=== PATIENT | male | born 1975 | race Caucasian/White ===

== ENCOUNTER 2025-05-14 13:32 | Emergency (ER) | payer SELFPAY ==
[2025-05-14 13:33] VITALS: BP 170/90; PULSE 87; RESP 18; TEMP 36.6; O2SAT 95; BMI 45.1
--- NOTE | 2025-05-14 14:12 | EDS_ITS ---
HPI History of Present Illness Chief Complaint: Complaint Informant: patient Narrative Narrative: Correct presents with urine retention. Last urination midnight yesterday 14 hours ago. He was out, no alcohol involvement. He urinated at midnight. Since then has not urinated. He states that issues a week ago that was self-limiting states had large urination afterwards with no issues since then. 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 Denies nausea or vomiting. Currently on Augmentin for a dental infection. No dysuria. Prior similar symptoms: Yes PFSH PFSH Home Medications ?Medication ?Instructions ?Recorded ?Last Taken ?Type amoxicillin 875 mg-potassium 1 tab PO BID 10 days #20 tabs 05/07/25 05/14/25 Rx clavulanate 125 mg tablet cefdinir 300 mg capsule 300 mg PO Q12H #14 caps 04/25 12/18 Unknown Rx tamsulosin 0.4 mg capsule (Flomax) 0.4 mg PO DAILY #30 caps 05/14/25 Unknown Rx Allergy/AdvReac Type Severity Reaction Status Date / Time No Known Allergies Allergy Verified 05/14/25 20:57 Social History Smoking Status: Unknown if ever smoked ROS ROS ED Constitutional Constitutional ED: Denies chills, fever(s) or sweats ENT ENT ED: Denies sore throat Cardiovascular Cardiovascular: Denies chest pain, leg edema, palpitations or racing heartbeat Respiratory/Chest Respiratory/Chest: Denies cough, dyspnea or dyspnea on exertion Gastrointestinal Gastrointestinal: Denies abdominal pain, diarrhea, nausea or vomiting Genitourinary Genitourinary ED: Reports other Details: Unable to pee ; Denies dysuria, hematuria or urinary frequency Musculoskeletal Musculoskeletal: Denies back pain, extremity pain or neck pain Integumentary Denies rash or wounds Neurologic Neurologic: Denies headache(s), paresthesias or weakness EXAM Physical Exam Const Vital Signs: 05/14/25 13:33 05/14/25 14:33 05/14/25 16:00 Temperature 97.9 F 98.7 F Temperature Source Oral Oral Pulse Rate 87 82 80 Respiratory Rate 18 16 16 Blood Pressure 170/90 H 135/60 H 125/56 H Blood Pressure Mean 116 85 79 Pulse Ox 95 95 98 Oxygen Delivery Method Room Air Room Air Room Air 05/14/25 16:08 Temperature 98.1 F Temperature Source Pulse Rate 78 Respiratory Rate 16 Blood Pressure 125/56 H Blood Pressure Mean 79 Pulse Ox 100 Oxygen Delivery Method Positive well nourished and well developed Constitutional Narrative: This uncomfortable, sweaty, nontoxic General Appearance ED: well developed HEENT Reports moist mucous membranes normocephalic and atraumatic Eyes General Eye ED: Yes normal appearance of both eyes Neck full ROM Chest Wall Chest: Negative for tenderness Resp normal respiratory effort and normal air movement Effort and Inspection: symmetric chest movement; Negative for respiratory distress Cardio regular rate, regular rhythm and no murmurs Peripheral Pulses: pulses 2+ throughout GI normal to inspection, nondistended, normoactive bowel sounds GI Narrative: Reducible umbilical hernia. Tenderness suprapubic, unable to fully evaluate distention due to body habitus. Palpation: Negative for guarding or rebound tenderness present Extremity normal to inspection General Extremety ED: Negative for edema or tenderness General Extremity: Negative for edema Neuro oriented x3 and no sensory deficits noted Sensorium / Orientation: awake and alert Skin no rashes or lesions noted and no wounds MDM MDM MDM Narrative Medical decision making narrative: Interventions / MDM: Differential diagnosis: Urine retention, UTI Diagnosis considered but do not suspect: N/A My EKG interpretation: N/A Imaging independently reviewed and interpreted by myself: N/A External documents reviewed: N/A Test considered but not ordered:N/A ED course: Patient sweating during my exam reducible umbilical hernia bladder ultrasound was 672. Gaming cath ordered, basic labs and urine ordered. Will reevaluate. 1540: There is difficulty placing Gaming catheter by nursing. States with attempts he had increasing urine output at least 100 cc in addition. There was preparations for smaller coud? however on my reevaluation clinically felt better. I placed a bedside ultrasound and measured the volume 200 cc of urine in his bladder. He did not want a Gaming catheter if he does not want to. At this time less than 400 cc. Urine resulted no 25 leukocytes with 5-10 WBCs. Urine culture sent. Started on cefdinir and Flomax. Will plan for urology follow-up. With return precautions. Awaiting BMP results at this time. BMP returned normal. Prescriptions for antibiotics and Flomax. Urology follow- up. All questions were answered. Patient Re-evaluation: stable Disposition discussed with patient/family/significant other: Case discussed with consulting clinician: N/A This note was generated with Smart Plate dictation software. It may contain incorrect words, spelling, and punctuation that were not noted in checking the note before signing. Lab Data Attestation: I reviewed the patient's lab results. Labs: Laboratory Results - last 24 hr 05/14/25 05/14/25 14:40 15:15 WBC 11.8 H RBC 5.17 Hgb 14.9 Hct 43.5 MCV 84.1 MCH 28.8 MCHC 34.3 RDW Std Deviation 41.2 RDW Coeff of Oskar 13.4 Plt Count 313 MPV 11.3 Immature Gran % (Auto) 0.700 Neut % (Auto) 70.0 Lymph % (Auto) 21.8 [place] % (Auto) 6.6 Eos % (Auto) 0.6 Baso % (Auto) 0.3 Absolute Neuts (auto) 8.3 H Absolute Lymphs (auto) 2.57 Nucleated RBC % 0 Sodium 140 Potassium 4.1 Chloride 106 Carbon Dioxide 21.7 Anion Gap 13 BUN 20 H Creatinine 1.00 Estim Creat Clear Calc 133.72 Est GFR (MDRD) Non-Af 92 BUN/Creatinine Ratio 19.8 Glucose 104 H Calcium 9.3 Urine Color Yellow Urine Clarity Clear Urine pH 6.0 Ur Specific [place] 1.020 Urine Protein 30 H Urine Glucose (UA) Normal Urine Ketones Negative Urine Occult Blood 25 H Urine Nitrite Negative Urine Bilirubin Negative Urine Urobilinogen Normal Ur Leukocyte Esterase 25 H Urine RBC 0-5 SEEN Urine WBC 5-10 SEEN Ur Squamous Epith Cells 0-5 SEEN Urine Bacteria 0 SEEN Urine Mucus 0 SEEN Discharge Plan Triage Chief Complaint: Complaint ED Provider: Boaz Huang Dx/Rx/DC Orders Clinical Impression: Acute retention of urine, Acute UTI Instructions: Urinary Tract Infections in Men, ED Urinary Retention, Male Prescriptions: New cefdinir 300 mg capsule 300 mg PO Q12H Qty: 14 0RF tamsulosin [Flomax] 0.4 mg capsule 0.4 mg PO DAILY Qty: 30 0RF No Action amoxicillin-pot clavulanate 875-125 mg tablet 1 tab PO BID 10 Days Qty: 20 0RF Primary Care Provider: Care Physician,No Primary Referrals: Ramo Girard MD [Med Staff - Active Staff] - 1-2 Weeks NOT,DEFINED [Non-Staff] - Activity Restrictions/Additional Instructions: Urine retention that improved in the ED after attempted Gaming catheter. Urine with signs of infection culture pending labs are normal. Take and finish antibiotic as prescribed. Take Flomax daily. Follow-up with urology. Print Language: Georgian Disposition Disposition: Home, Self Care Discharge Date/Time: 05/14/25 16:10
--- OUTSIDE RECORDS SUMMARY | 2025-05-14 14:19 | XMS RPT_ITS | CCD ---
Author Organization [facility] Care Team Providers Care Admissions Clerk Name Role Phone Unavailable Primary Care Provider UnavailCecile De Primary Care Provider DENISE TORRES Referring Unavailable DENISE TORRES Attending Unavailable DENISE TORRES Admitting Unavailable CECILE HOPKINS Primary Care Unavailable Sandeep EDITOR PUBLICATIONS-PIGMENT MAKING SUPERVISORCecile Primary Care Provider Sean Jiang Attending Unavailable SOL BROWN Admitting Unavailable SOL BROWN Consulting Unavailable SOL BROWN Attending Unavailable NONE, NONE Primary Care Unavailable EISENINDIAN, SOL Consulting Unavailable Craft [phone], [phone] Les R. Consu lting Unavailable CRAFT DO, LES R Consulting Unavailable NONE, NONE Consulting Unavailable NONE, NONE Consulting Unavailable CARSON DO, DR HARDIN Admitting Unavaila ble CARSON DO, DR HARDIN Consulting Unavaila ble CARSON DO, DR HARDIN Attending Unavaila ble NONE, NONE Primary Care Unavailable CARSON DO, DR HARDIN Consulting Unavaila ble NONE, NONE Consulting Unavailable NONE, NONE Consulting Unavailable Ortiz Velasquez Attending Provider [phone] Albert Hamilton Attending Provider [phone] Ortiz Velasquez Attending Unavailable Ortiz Velasquez Attending Unavailable Albert Rodarte Attending Unavailable Medications Current Medications Medication Drug Class(es) Dates Sig (Normalized) Sig (Original) amoxicillin 875 mg / clavulanate 125 mg oral tablet (2 sources) Penicillin-class Antibacterial Start: 05-07-2025 Amoxicillin-Pot Clavulanate 875-125 mg tablet Active 1 {tbl} PO TWICE A DAY 20 10 May 07, 2025 12:00am May 16, 2025 12:00am Start: 01-21-2025 End: 01-31-2025 Amoxicillin-Pot Clavulanate 875-125 mg tablet Discontinued 1 {tbl} PO Q12H 20 January 21, 2025 1:00am January 30, 2025 1:00am January 31, 2025 12:12am hydroCHLOROthiazide 50 mg / triamterene 75 mg oral tablet (3 sources) Potassium-sparing Diuretic, Thiazide Diuretic Start: 09-15-2020 End: 04-10-2021 take 0.5 tablet by mouth once daily triamterene-hydrochlorothiazide 75-50 MG tablet Indications: Essential hypertension Take 0.5 tablets by mouth daily. 15 tablet 3 09/15/2020 Active Completed/Discontinued Medications Medication Drug Class(es) Dates Sig (Normalized) Sig (Original) ibuprofen 800 mg oral tablet (3 sources) Nonsteroidal Anti-inflammatory Drug Start: 08-27-2020 End: 04-10-2021 take 1 tablet by mouth every six hours as needed ibuprofen 800 MG tablet Take 1 tablet by mouth every 6 hours as needed for Moderate Pain. 40 tablet 0 08/27/2020 04/10/2021 Discontinued losartan potassium 50 mg oral tablet (1 source) Angiotensin 2 Receptor Triston Start: 12-07-2020 End: 04-10-2021 take 1 tablet by mouth once daily losartan 50 MG tablet Indications: Essential hypertension Take 1 tablet by mouth daily. 30 tablet 3 12/07/2020 04/10/2021 Discontinued Problems Active Problems Problem Classification Problem Date Documented Date Episodic/Chronic Disorders of teeth and jaw (2 sources) Infection of tooth; Translations: [Periapical abscess without sinus] 01-21-2025 Episodic Essential hypertension (4 sources) Essential hypertension; Translations: [Essential (primary) hypertension] Onset: 09-15-2020 09-15-2020 Chronic Immunizations and screening for infectious disease (3 sources) Contact with and (suspected) exposure to infections with a predominantly sexual mode of transmission; Translations: [CONTCT W EXPOS INFECT SEXUAL TRNSMS] Onset: 06-07-2023 Episodic Osteoarthritis (1 source) Unilateral primary osteoarthritis, left knee; Translations: [UNI PRIM OSTEOARTHRITIS LT KNEE] Onset: 08-05-2023 Chronic Other non-traumatic joint disorders (2 sources) Pain in left knee; Translations: [PAIN IN LEFT KNEE] Onset: 08-01-2023 Episodic Other nutritional; endocrine; and metabolic disorders (3 sources) Morbid obesity; Translations: [Morbid (severe) obesity due to excess calories] Onset: 09-15-2020 09-15-2020 Chronic Other screening for suspected conditions (not mental disorders or infectious disease) (2 sources) Patient encounter status; Translations: [Encounter for screening for malignant neoplasm of prostate] Onset: 09-15-2020 Episodic Sprains and strains (1 source) Sprain of ankle; Translations: [Sprain of anterior talofibular ligament of right ankle, initial encounter] Episodic Unclassified (1 source) Sprain of right ankle; Translations: [Sprain of right ankle, unspecified ligament, initial encounter] Unclassified (2 sources) Patient encounter status; Translations: [Screening for thyroid disorder] Onset: 09-15-2020 09-15-2020 Past or Other Problems Problem Classification Problem Date Documented Date Episodic/Chronic Administrative/social admission (2 sources) Administrative reason for encounter; Translations: [Encounter for other administrative examinations] Onset: 09-03-2024 09-03-2024 Episodic Results Test Name Value Interpretation Reference Range Facil ity Urgent Care Visit Reporton 0 05-07-2025 Urgent Care Visit Report [facility] [address], [address] [place] [id number] OFFICE VISIT Date of Service: 05/07/25 MR#: [id number] Acct: [id number] Name: rios delatorre Rep #: [id number] : 1975 Provider: KATERINA Velez Age/Sex: 49/M Location: [facility] Status: Signed Intake Vital Signs 05/07/25 08:26 BP 162/92 H Blood Pressure Location Lt brachial Position Sitting Respiration 18 Pulse 74 Pulse Source NIBP Temp 98.4 F Temp Source Oral Pulse Oximetry (%) 98 Oxygen Delivery Method room air Intake Visit Reasons: CONCERN FOR TOOTH INFECTION Chief Complaint: left lower tooth Stiff Neck Loader Required: No Is patient in pain?: Yes Allergies No Known Allergies Allergy (Verified 05/07/25 08:27) Have you fallen in the past year?: No Nurse's Note: left lower tooth infection. c/o pain, drainage, swelling into left neck, intermittent fever x 2 weeks. hx of same and given ATB x3 occasions. discussed dental appt with pt HPI HPI Chief Complaint: left lower tooth Details: rios delatorre, is a 49 M who presents to the office today for evaluation of dental pain. Patient states he has been experiencing recurrent dental infections over the past several months requiring multiple rounds of antibiotics for management. Patient states that he is not established with a dentist but does have poor tooth quality from tobacco use. He states that he noticed pain in the left lower jaw with swelling, fever, and purulent discharge. He states that the pain was relieved by Aleve but the swelling persists. ROS Const Constitutional: No chills, fatigue, fever(s) or headache(s) ENT ENT: Positive for dental pain, bad breath and mouth pain; No headache(s) Neuro Neurology: No headache(s) Endo Endocrine: No fatigue Exam Const General: cooperative, healthy appearing and no acute distress HENMT Teeth and gingiva: abnormal tooth or associated gingiva lower left with associated gingival edema, dentin fractured and pulp exposed; without associated gingival fluctuance, gingiva abnormal with purulent discharge and diffusely erythematous and poor dentition Neck Lymphatic: lymphedema (left anterior neck) Coding Level of Care Code Established Pt Off vis,new,level 3 Patient Type Established History Expanded Problem Focused Exam Expanded Problem Focused Medical Decision Making Low Complexity Diagnoses Dental infection K04.7 Elevated BP without diagnosis of hypertension R03.0 Assessment and Plan Assessment and Plan (1) Dental infection: Status: Acute Plan: Significant edema of the left lower jaw with localized edema of the neck suggestive of deep neck infection vs dental abscess. Initiate management with Augmentin at this time, patient strongly e ncouraged to establish with a dentist for management. Continue PRN OTC analgesia for pain control. Patient voiced understanding and agreement with plan. (2) Elevated BP without diagnosis of hypertension: Status: Acute Plan: Discussed BP elevation and risk for cardiovascular disease. Strongly encouraged patient to f/u with PCP for management. Patient voiced understanding and agreement with plan. Medications: New amoxicillin-pot clavulanate 875-125 mg 1 TAB PO BID 10 days 20 tabs 0RF Clinical Quality Measures Falls Risk Screening/Assistive Devices Have you fallen in the past year?: No 05/07/25 0851 Date Albert Franzigner Signature: Date (if applicable) CC: Normal [facility] Urgent Care Visit Reporton 0 01-21-2025 Urgent Care Visit Report [facility] [address], [address] [place] [address] OFFICE VISIT Date of Service: 01/21/25 MR#: [id number] Acct: [id number] Name: rios delatorre Rep #: [id number] : 1975 Provider: KATERINA Howell Age/Sex: 49/M Location: [facility] Status: Signed Intake Vital Signs 01/21/25 12:04 BP 148/82 H Blood Pressure Location Rt brachial Position Sitting Respiration 16 Pulse 67 Pulse Source NIBP Temp 98.2 F Temp Source Oral Pulse Oximetry (%) 97 Oxygen Delivery Method room air Intake Visit Reasons: ear pain Chief Complaint: left ear pain, plugged, swelling Stiff Neck Loader Required: No Is patient in pain?: Yes Allergies No Known Allergies Allergy (Verified 01/21/25 12:04) Medications ???Medication ???Instructions ???Recorded ???Confirmed ???Type amoxicillin 875 mg-potassium 1 tab PO Q12H 10 days #20 tabs 01/21/25 Rx clavulanate 125 mg tablet Have you fallen in the past year?: No Nurse's Note: left ear pain, plugged, swelling x 1 week HPI HPI Chief Complaint: left ear pain, plugged, swelling Details: rios delatorre, is a 49 M who presents to the office today for complaint of swelling and pain to the left jaw into the ear area. Patient states after having an ear infection or tooth issue. He denies fever, chills, sweats. No nausea, vomiting or diarrhea. No otorrhea or hearing change/loss. No other associated symptoms or alleviating/aggravat ing factors. ROS Const Constitutional: No other (6 system ROS completed with pertinent findings in the HPI otherwise normal.) Exam Const General: cooperative and well developed HENMT Head: normal to inspection and atraumatic Ears: hearing grossly normal bilaterally, TM's normal bilaterally and EAC's normal Nose: nasal discharge clear Face and sinus: normal facial exam Mouth: oral mucosae normal Teeth and gingiva: multiple restorations, poor dentition and other (Small amount of gingival erythema to left lower jaw without abscess) Resp Effort Inspection: normal respiratory effort and no audible wheezes Auscultation: Bilateral: Clear to Auscultation Cardio Rate: regular rate Rhythm: regular rhythm Neuro General: patient alert Psych Appearance: grossly normal Mental Status: mental status grossly normal Coding Level of Care Code Off vis,est,level 3 Diagnoses Dental infection K04.7 Assessment and Plan Assessment and Plan (1) Dental infection: Status: Acute Medications: New amoxicillin-pot clavulanate 875-125 mg 1 TAB PO Q12H 20 tabs 0RF 10 days J01.90 - Acute sinusitis, unspecified Plan Augmentin as prescribed today. Encouraged to get plenty of rest, drink lots of clear liquids, and use Tylenol or Ibuprofen (unless contraindicated) for fever and comfort. Patient also educated on other symptomatic management techniques. To be seen in 7-10 days if no improvement; sooner if worsening of symptoms. Patient advised of potential red flags and when appropriate to report to the ED. Patient verbalized understanding and agreement with all the above. Clinical Quality Measures Falls Risk Screening/Assistive Devices Have you fallen in the past year?: No 01/21/25 1209 Date Ortiz Olivares Signature: Date (if applicable) CC: Normal [facility] Urgent Care Visit Reporton 1 Urgent Care Visit Report [facility] [address] [place] [address] OFFICE VISIT Date of Service: 09/03/24 MR#: [id number] Acct: [id number] Name: rios delatorre Rep #: [id number] : 1975 Provider: KATERINA Howell Age/Sex: 48/M Location: 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 Please see corresponding scanned documents with today's date. Office Procedures Physical Exam Coding PE Coding DOT PE: Yes Coding Level of Care Code No Charge Diagnoses Encounter for examination required by Department of Transportation (DOT) Z02.89 Assessment and Plan Assessment and Plan (1) Encounter for examination required by Department of Transportation (DOT): Status: Acute 09/03/24 1405 Date Ortiz BORGES Cosigner Signature: Date (if applicable) CC: Normal [facility] PATELLA LEFTon 08-01-2023 PATELLA LEFT EXAM: PATELLA LEFT HISTORY: Pain of left knee joint COMPARISON: None. TECHNIQUE: AP, lateral, and patellar projections. FINDINGS: The alignment is normal. I do not see any evidence of fracture. Patient has significant advanced osteoarthritic degenerative joint disease. There is major narrowing of the medial joint space. Mild narrowing of the lateral joint space is seen. Patellofemoral narrowing is seen. There is large broad-based spur and osteophyte changes off the femoral condyles and along the undersurface of the patella. Spurring is seen off the tibial plateaus. I do not see periarticular calcifications or major joint effusion. IMPRESSION: For the age group patient has moderately severe osteoarthritic degenerative joint disease. This is most pronounced in the medial and patellofemoral joints. I do not see any acute traumatic finding. Normal [facility] CHLAM GONORRHEA and TRICH NA Aon 06-10-2023 [id number] Negative Normal Negative [facility] Comment on above: Performed By: #### G CCHTR #### Performed for [facility] [address] [place], [place] [address] C. trachomatis rRNA JORGE LUIS+probe Ql (Unsp spec) Negative Normal Negative [facility] Comment on above: Performed By: #### G CCHTR #### Performed for [facility] [address] [place], [place] [address] N. gonorrhoeae rRNA JORGE LUIS+probe Ql (Unsp spec) Negative Normal Negative [facility] Comment on above: Performed By: #### G CCHTR #### Performed for [facility] [address] [place], [place] [address] CT Ankle Right Without Contr eduardo 09-24-[address] evidence of acute osseous abnormality. 2. Ligamentous structures and tendons would be better evaluated with MRI. 3. Moderate soft tissue swelling in the lateral ankle. 4. Mild degenerative change of the tibiotalar joint with small subchondral cystic change in the lateral talar dome which may suggest focal overlying chondrosis, however no significant osteochondral lesion in the talar dome. Workstation ID: [id number] [facility] EXAMINATION: CT ANKLE RIGHT WITHOUT CONTRAST HISTORY: ORDERING SYSTEM PROVIDED HISTORY: Sprain of anterior talofibular ligament of right ankle, initial encounter, TECHNOLOGIST PROVIDED HISTORY: Injury/Trauma Reason for exam: stepped in hole, swelling pain medial and lateral Encounter Type: Initial Mechanism of injury: stepped in hole ORDERING SYSTEM PROVIDED DIAGNOSIS CODES: S93.491A Sprain of anterior talofibular ligament of right ankle, initial encounter COMPARISON: None TECHNIQUE: Dose reduction techniques were achieved by using automated exposure control and/or adjustment of mA and/or kV according to patient size and/or use of iterative reconstruction technique. Multiplanar CT images of the right ankle without contrast CONTRAST: None FINDINGS: No CT evidence of acute fracture. No dislocation. Scattered probable benign bone islands. No suspicious osseous lesions. Enthesopathic change at the distal Achilles tendon insertion. Mild degenerative change of the ankle. There is small subchondral cystic change in the lateral talar dome which may suggest focal overlying chondrosis, however no significant osteochondral lesion in the talar dome. Nonspecific subcortical cystic change in the lateral malleolus. Ligamentous structures and tendons would be better evaluated with MRI. Moderate soft tissue swelling in the lateral ankle. There appears to be ganglion cyst formation in the posterior ankle. [facility] Interface, Rad In Zachary Suazoq - 09/24/2020 6:42 PM EST EXAMINATION: CT ANKLE RIGHT WITHOUT CONTRAST HISTORY: ORDERING SYSTEM PROVIDED HISTORY: Sprain of anterior talofibular ligament of right ankle, initial encounter, TECHNOLOGIST PROVIDED HISTORY: Injury/Trauma Reason for exam: stepped in hole, swelling pain medial and lateral Encounter Type: Initial Mechanism of injury: stepped in hole ORDERING SYSTEM PROVIDED DIAGNOSIS CODES: S93.491A Sprain of anterior talofibular ligament of right ankle, initial encounter COMPARISON: None TECHNIQUE: Dose reduction techniques were achieved by using automated exposure control and/or adjustment of mA and/or kV according to patient size and/or use of iterative reconstruction technique. Multiplanar CT images of the right ankle without contrast CONTRAST: None FINDINGS: No CT evidence of acute fracture. No dislocation. Scattered probable benign bone islands. No suspicious osseous lesions. Enthesopathic change at the distal Achilles tendon insertion. Mild degenerative change of the ankle. There is small subchondral cystic change in the lateral talar dome which may suggest focal overlying chondrosis, however no significant osteochondral lesion in the talar dome. Nonspecific subcortical cystic change in the lateral malleolus. Ligamentous structures and tendons would be better evaluated with MRI. Moderate soft tissue swelling in the lateral ankle. There appears to be ganglion cyst formation in the posterior ankle. IMPRESSION: 1. No CT evidence of acute osseous abnormality. 2. Ligamentous structures and tendons would be better evaluated with MRI. 3. Moderate soft tissue swelling in the lateral ankle. 4. Mild degenerative change of the tibiotalar joint with small subchondral cystic change in the lateral talar dome which may suggest focal overlying chondrosis, however no significant osteochondral lesion in the talar dome. Workstation ID: [id number] [facility] CT ANKLE RIGHT WITHOUT CONTR Eduardo 09-22-2020 CT ANKLE RIGHT WITHOUT CONTRAST EXAMINATION: CT ANKLE RIGHT WITHOUT CONTRAST HISTORY: ORDERING SYSTEM PROVIDED HISTORY: Sprain of anterior talofibular ligament of right ankle, initial encounter, TECHNOLOGIST PROVIDED HISTORY: Injury/Trauma Reason for exam: stepped in hole, swelling pain medial and lateral Encounter Type: Initial Mechanism of injury: stepped in hole ORDERING SYSTEM PROVIDED DIAGNOSIS CODES: S93.491A Sprain of anterior talofibular ligament of right ankle, initial encounter COMPARISON: None TECHNIQUE: Dose reduction techniques were achieved by using automated exposure control and/or adjustment of mA and/or kV according to patient size and/or use of iterative reconstruction technique. Multiplanar CT images of the right ankle without contrast CONTRAST: None FINDINGS: No CT evidence of acute fracture. No dislocation. Scattered probable benign bone islands. No suspicious osseous lesions. Enthesopathic change at the distal Achilles tendon insertion. Mild degenerative change of the ankle. There is small subchondral cystic change in the lateral talar dome which may suggest focal overlying chondrosis, however no significant osteochondral lesion in the talar dome. Nonspecific subcortical cystic change in the lateral malleolus. Ligamentous structures and tendons would be better evaluated with MRI. Moderate soft tissue swelling in the lateral ankle. There appears to be ganglion cyst formation in the posterior ankle. IMPRESSION: 1. No CT evidence of acute osseous abnormality. 2. Ligamentous structures and tendons would be better evaluated with MRI. 3. Moderate soft tissue swelling in the lateral ankle. 4. Mild degenerative change of the tibiotalar joint with small subchondral cystic change in the lateral talar dome which may suggest focal overlying chondrosis, however no significant osteochondral lesion in the talar dome. Workstation ID: [id number] Dictated by: SASHA ARRINGTON on FriSep 24, 2020 6:39:49 PM EST Transcribed by: SASHA ARRINGTON on FriSep 24, 2020 6:39:49 PM EST Finalized by: SASHA ARRINGTON on FriSep 24, 2020 6:39:49 PM EST Normal [facility] Comment on above: Order Comment: Pt/fa x Injury/Trauma or Illness?:Injury/Trauma How long have you had these symptoms (acute/chronic)?:Acute Reason for exam?:stepped in hole, swelling pain medial and lateral Type of Exam?:Initial Mechanism of injury?:stepped in hole CBCon 09-16-2020 ABSOLUTE BAS 0.1 10*3/uL Normal 0.0-0.2 [facility] ABSOLUTE EOS 0.40 10*3/uL Normal 0.0-0.7 [facility] ABSOLUTE NEUTROPHIL COUNT 5.0 10*3/uL Normal 1.4-6.5 [facility] Basophils/100 WBC (Bld) 0.5 % Normal 0.0-2.0 [facility] DTYPE AUTO DIFF Normal [facility] Eosinophils/100 WBC (Bld) 4.1 % Normal 0.0-11.0 [facility] Lymphocytes (Bld) [#/Vol] 3.70 10*3/uL High 1.2-3.4 [facility] Lymphocytes/100 WBC (Bld) 38.5 % Normal 20.0-55.0 [facility] Monocytes (Bld) [#/Vol] 0.5 10*3/uL Normal 0.0-0.7 [facility] Monocytes/100 WBC (Bld) 5.4 % Normal 0.0-10.0 [facility] Neutrophils/100 WBC (Bld) 51.5 % Normal 37.0-75.0 [facility] Erythrocyte distribution width (RBC) [Ratio] 13.8 % Normal 11.5-14.5 [facility] Hematocrit (Bld) [Volume fraction] 46.5 % Normal 42.0-52.0 [facility] Hemoglobin (Bld) [Mass/Vol] 15.9 g/dL Normal 14.0-18.0 [facility] MCH (RBC) [Entitic mass] 28.9 pg Normal 26.0-35.0 [facility] MCHC (RBC) [Mass/Vol] 34.2 g/dL Normal 27.0-37.0 [facility] MCV (RBC) [Entitic vol] 84.4 fL Normal 80.0-100.0 [facility] Platelet mean volume (Bld) [Entitic vol] 9.5 fL Normal 7.4-11.0 [facility] Platelets (Bld) [#/Vol] 247 10*3/uL Normal 130.0-400.0 [facility] RBC (Bld) [#/Vol] 5.51 10*6/uL Normal 4.0-6.1 [facility] WBC (Bld) [#/Vol] 9.7 10*3/uL Normal 3.6-11.0 [facility] CMP FASTINGon 09-16-2020 A:G RATIO 1.2 RATIO Low 1.3-2.2 [facility] Albumin [Mass/Vol] 4.4 G/dl Normal 3.5-5.0 [facility] ALP [Catalytic activity/Vol] 98 U/L Normal 38-126 [facility] ALT [Catalytic activity/Vol] 29 U/L Normal <50 [facility] AST [Catalytic activity/Vol] 25 U/L Normal 17-59 [facility] Bilirubin [Mass/Vol] 0.6 mg/dL Normal 0.2-1.3 [facility] Calcium [Mass/Vol] 9.7 mg/dL Normal 8.4-10.2 [facility] Chloride [Moles/Vol] 102 mmol/L Normal 98-107 [facility] Comment on above: Result Comment: Enma delgado note: Triglyceride levels of 600mg/dL or higher may positively bias chloride results by approximately 2.1 mmol CO2 [Moles/Vol] 30 mmol/L Normal 22-30 [facility] Creatinine [Mass/Vol] 0.86 mg/dL Normal 0.7-1.2 [facility] EST. GFR, >60 Normal [facility] EST. GFR,Non >60 Normal [facility] GFR/1.73 sq M predicted among non-blacks MDRD (S/P/Bld) [Vol rate/Area] Average GFR for 40-49 years old = 99. Normal [facility] Comment on above: Result Comment: Outbound Sales Agent annia Kidney disease, GFR = <60. Kidney failure, GFR = <15. The GFR estimate is not adjusted for extreme body surface area or acute process, nor has it been validated for women or ethnic groups other than and . Glucose [Mass/Vol] 106 mg/dL High 70-100 [facility] Comment on above: Result Comment: NORMAL <100 mg/dL PREDIABETES 101-126 mg/dL DIABETES 126 mg/dL or higher Potassium [Moles/Vol] 4.4 mmol/L Normal 3.5-5.1 [facility] Protein [Mass/Vol] 8.2 g/dL Normal 6.3-8.2 [facility] Sodium [Moles/Vol] 139 mmol/L Normal 137-145 [facility] Urea nitrogen [Mass/Vol] 13 mg/dL Normal 7-20 [facility] LIPID PROFILEon 09-16-2020 Cholesterol [Mass/Vol] 209 mg/dL High 120-200 [facility] Cholesterol in HDL [Mass/Vol] 41 mg/dL Normal 26-63 [facility] Cholesterol in LDL [Mass/Vol] 142 mg/dL Normal [facility] Cholesterol in VLDL [Mass/Vol] 26 mg/dL High 5.0-25 [facility] Cholesterol.total/C holesterol in HDL [Mass ratio] 5.10 {ratio} Normal [facility] Comment on above: Result Comment: RISK TOTAL/HDL RATIO MEN WOMEN 1/2 AVERAGE 3.43 3.27 AVERAGE 4.97 4.44 2X AVERAGE 9.55 7.05 3X AVERAGE 23.99 11.04 Triglyceride [Mass/Vol] 128 mg/dL Normal 0-150 [facility] TSHon 09-16-2020 TSH Qn 1.980 uIU/ML Normal 0.46-4.68 [facility] XR ANKLE RIGHT 3+ VIEWSon XR ANKLE RIGHT 3+ VIEWS EXAM: XR Right Ankle, 3 Views CLINICAL HISTORY: ankle pain and swelling TECHNIQUE: Frontal, lateral and oblique views of the right ankle. COMPARISON: No relevant prior studies available. FINDINGS: Limitations: None. Bones/joints: No acute fracture or osseous destruction. Normal alignment. Soft tissues: Diffuse periarticular soft tissue swelling noted with associated lateral hematoma. IMPRESSION: There is soft tissue swelling without acute bony abnormality. Electronically signed by: Marlene Santacruz MD 08/27/2020 9:11 AM CDT [facility] IMPRESSION: There is soft tissue swelling without acute bony abnormality. Electronically signed by: Marlene Santacruz MD 08/27/2020 9:11 AM CDT [facility] EXAM: XR Right Ankle, 3 Views CLINICAL HISTORY: ankle pain and swelling TECHNIQUE: Frontal, lateral and oblique views of the right ankle. COMPARISON: No relevant prior studies available. FINDINGS: Limitations: None. Bones/joints: No acute fracture or osseous destruction. Normal alignment. Soft tissues: Diffuse periarticular soft tissue swelling noted with associated lateral hematoma. [facility] User, Interfaces - 08/27/2020 10:13 AM EDT EXAM: XR Right Ankle, 3 Views CLINICAL HISTORY: ankle pain and swelling TECHNIQUE: Frontal, lateral and oblique views of the right ankle. COMPARISON: No relevant prior studies available. FINDINGS: Limitations: None. Bones/joints: No acute fracture or osseous destruction. Normal alignment. Soft tissues: Diffuse periarticular soft tissue swelling noted with associated lateral hematoma. IMPRESSION IMPRESSION: There is soft tissue swelling without acute bony abnormality. Electronically signed by: Marlene Santacruz MD 08/27/2020 9:11 AM CDT [facility] Vital Signs Date Time Vital Sign Value Performing Clinician Faci lity 05-07-2025 08:26-0400 Body temperature 98.4 [degF] Ortiz Efraín PA Work Phone: [facility] 05-07-2025 08:26-0400 Diastolic blood pressure 92 mm[Hg] Ortiz Efraín PA Work Phone: [facility] 05-07-2025 08:26-0400 Heart rate 74 /min Ortiz Efraín PA Work Phone: [facility] 05-07-2025 08:26-0400 Respiratory rate 18 /min Ortiz Efraín PA Work Phone: [facility] 05-07-2025 08:26-0400 SaO2% (BldA) [Mass fraction] 98 % Ortiz Efraín PA Work Phone: [facility] 05-07-2025 08:26-0400 Systolic blood pressure 162 mm[Hg] Ortiz Efraín PA Work Phone: [facility] 01-21-2025 12:04-0500 Body temperature 98.2 [degF] Ortiz Efraín PA Work Phone: [facility] 01-21-2025 12:04-0500 Diastolic blood pressure 82 mm[Hg] Ortiz Efraín PA Work Phone: [facility] 01-21-2025 12:04-0500 Heart rate 67 /min Ortiz Efraín PA Work Phone: [facility] 01-21-2025 12:04-0500 Respiratory rate 16 /min Ortiz Efraín PA Work Phone: [facility] 01-21-2025 12:04-0500 SaO2% (BldA) [Mass fraction] 97 % Ortizrosalino Kenny PA Work Phone: [facility] 01-21-2025 12:04-0500 Systolic blood pressure 148 mm[Hg] Ortiz Kenny PA Work Phone: [facility] 04-10-2021 08:43-0400 Body mass index (BMI) [Ratio] 48.15 kg/m2 Cecile Sandeep EDITOR PUBLICATIONS-PIGMENT MAKING SUPERVISOR Work Phone: [facility] 04-10-2021 08:43-0400 Body weight 161.03 kg Cecile Sandeep EDITOR PUBLICATIONS-PIGMENT MAKING SUPERVISOR Work Phone: [facility] 04-10-2021 08:43-0400 Diastolic blood pressure 80 mm[Hg] Cecile Sandeep EDITOR PUBLICATIONS-PIGMENT MAKING SUPERVISOR Work Phone: [facility] 04-10-2021 08:43-0400 Heart rate 80 /min Cecile Sandeep EDITOR PUBLICATIONS-PIGMENT MAKING SUPERVISOR Work Phone: [facility] 04-10-2021 08:43-0400 SaO2% (BldA) [Mass fraction] 97 % Cecile Sandeep EDITOR PUBLICATIONS-PIGMENT MAKING SUPERVISOR Work Phone: [facility] 04-10-2021 08:43-0400 Systolic blood pressure 132 mm[Hg] Cecile Sandeep EDITOR PUBLICATIONS-PIGMENT MAKING SUPERVISOR Work Phone: [facility] 09-15-2020 13:40-0400 BMI (Body Mass Index) 46.52 kg/m2 Cecile Sandeep [facility] 09-15-2020 13:40-0400 Body [facility] 09-15-2020 13:40-0400 BP Diastolic 90 mm[Hg] [facility] 09-15-2020 13:40-0400 BP Systolic 144 mm[Hg] [facility] 09-15-2020 13:40-0400 Height 182.9 cm [facility] 09-15-2020 13:40-0400 Pulse (Heart Rate) 80 /min [facility] 09-15-2020 13:40-0400 Pulse Oximetry 97 % [facility] 08-27-2020 09:51-0400 BMI (Body Mass Index) 46.79 kg/m2 [facility] 08-27-2020 09:51-0400 Body weight 156.49 kg [facility] 08-27-2020 09:51-0400 Height 182.9 cm [facility] 08-27-2020 09:50-0400 Body Temperature 98.6 [degF] [facility] 08-27-2020 09:50-0400 BP Diastolic 77 mm[Hg] [facility] 08-27-2020 09:50-0400 BP Systolic 172 mm[Hg] [facility] 08-27-2020 09:50-0400 Pulse (Heart Rate) 81 /min [facility] 08-27-2020 09:50-0400 Pulse Oximetry 96 % [facility] 08-27-2020 09:50-0400 Respiratory Rate 18 /min [facility] Encounters Encounter Date Encounter Type Care Provider Facility Start: 05-07-2025 End: 05-07-2025 Patient encounter procedure Albert Rodarte [facility] Work Phone: Start: 05-07-2025 End: 05-07-2025 ambulatory Albert Rodarte [facility] Work Phone: Start: 01-21-2025 End: 01-21-2025 Patient encounter procedure Ortiz Kenny PA [facility] Work Phone: Start: 01-21-2025 End: 01-21-2025 ambulatory Ortiz BORGES Facility:[facility] Start: 09-03-2024 End: 09-03-2024 ambulatory Ortiz BORGES Facility:[facility] Start: 08-01-2023 End: 08-02-2023 ambulatory SOL BROWN Facility:[facility] Start: 06-07-2023 End: 06-08-[address] WILFRED BYRD DO Facility:[facility] Start: 04-10-2021 End: 04-10-2021 Office outpatient visit 15 minutes Cecile Hopkins EDITOR PUBLICATIONS-PIGMENT MAKING SUPERVISOR Work Phone: [facility] Comment on above: body mass index of 4 0.0-49.9 (Primary Dx); Essential hypertension; Preventative health care; Screening for prostate cancer Start: 04-10-2021 End: 04-10-2021 Patient encounter status Cecile Hopkins EDITOR PUBLICATIONS-PIGMENT MAKING SUPERVISOR Work Phone: [facility] Start: 09-22-2020 End: 09-23-2020 Patient encounter procedure DENISE TORRES [facility] Start: 09-22-2020 End: 09-22-2020 Subsequent hospital visit by physician Denise Torres Work Phone: [facility] CT Scan Comment on above: Sprain of anterior t alofibular ligament of right ankle, initial encounter Start: 09-15-2020 End: 09-15-2020 Office outpatient new 30 minutes Cecile Hopkins Work Phone: [facility] Comment on above: Essential hypertensi on (Primary Dx); Screening for thyroid disorder Start: 08-27-2020 End: 08-27-2020 Emergency department patient visit [facility] Start: 08-27-2020 End: 08-27-2020 Emergency department patient visit [facility] Work Phone[facility] Procedures Date Procedure Procedure Detail Performing Clinician Start: 09-22-2020 Ct lower extremity w /o contrast material Denise Torres Work Phone: Start: 09-16-2020 Lipid 1996 panel - S lukas or Plasma Cecile Hopkins EDITOR PUBLICATIONS-PIGMENT MAKING SUPERVISOR Work Phone: Start: 08-27-2020 X-ray of right ankle Ba brunilda Jiang Work Phone: Plan of Treatment Date Care Activity Detail Author Start: 09-16-2025 Fasting lipid profile LIPID SCREENIN G [facility] Start: 08-08-2025 Tetanus vaccination [facility] Start: 10-12-2021 End: 10-12-2021 Patient encounter procedure 10/12/2021 Office Visit Family Medicine Cecile Hopkins, EDITOR PUBLICATIONS-PIGMENT MAKING SUPERVISOR [address] [place] [address] [facility] Start: 09-16-2021 Potassium [Moles/vol ume] in Serum or Plasma POTASSIUM [facility] Start: 08-27-2021 End: 04-10-2022 Complete blood count with white cell differential, automated CBC, EDIF, PLATELET Lab Routine Essential hypertension Expected: 08/27/2021, Expires: 04/10/2022 [facility] Comment on above: Expected: 08/27/2021 , Expires: 04/10/2022 Start: 08-27-2021 End: 04-10-2022 Comprehensive metabolic 2000 panel - Serum or Plasma COMPREHENSIVE METABOLIC PANEL Lab Routine Essential hypertension Expected: 08/27/2021, Expires: 04/10/2022 [facility] Comment on above: Expected: 08/27/2021 , Expires: 04/10/2022 Start: 08-27-2021 End: 04-10-2022 LIPID PANEL W CALCULATED LDL LIPID PANEL W CALCULATED LDL Lab Routine Essential hypertension Expected: 08/27/2021, Expires: 04/10/2022 [facility] Comment on above: Expected: 08/27/2021 , Expires: 04/10/2022 Start: 08-27-2021 End: 04-10-2022 PSA screening PSA, SCREENING Lab Routine Screening for prostate cancer Expected: 08/27/2021, Expires: 04/10/2022 [facility] Comment on above: Expected: 08/27/2021 , Expires: 04/10/2022 Start: 12-15-2020 End: 12-15-2020 Office Visit 12/15/2020 Office Visit Family Medicine Cecile Hopkins, EDITOR PUBLICATIONS-PIGMENT MAKING SUPERVISOR [address] [place] [address] [facility] Start: 09-15-2020 End: 09-15-2021 Complete blood count with white cell differential, automated CBC, EDIF, PLATELET Lab Routine Essential hypertension Expected: 09/15/2020, Expires: 09/15/2021 [facility] Comment on above: Expected: 09/15/2020 , Expires: 09/15/2021 Start: 09-15-2020 End: 09-15-2021 Comprehensive metabolic 2000 panel COMPREHENSIVE METABOLIC PANEL Lab Routine Essential hypertension Expected: 09/15/2020, Expires: 09/15/2021 [facility] Comment on above: Expected: 09/15/2020 , Expires: 09/15/2021 Start: 09-15-2020 End: 09-15-2021 LIPID PANEL W CALCULATED LDL LIPID PANEL W CALCULATED LDL Lab Routine Essential hypertension Expected: 09/15/2020, Expires: 09/15/2021 [facility] Comment on above: Expected: 09/15/2020 , Expires: 09/15/2021 Start: 09-15-2020 End: 09-15-2020 Office Visit 09/15/2020 Office Visit Family Medicine Cecile Hopkins, EDITOR PUBLICATIONS-PIGMENT MAKING SUPERVISOR [address] [place] [address] [facility] Start: 09-15-2020 End: 09-15-2021 TSH Qn TSH Lab Routine Essential hypertension Screening for thyroid disorder Expected: 09/15/2020, Expires: 09/15/2021 [facility] Comment on above: Expected: 09/15/2020 , Expires: 09/15/2021 Start: 07-25-2020 Influenza vaccination INFLUENZA VACC INE (#1) [facility] Start: 07-25-2020 Influenza vaccinatio n given Sequential Influenza Vaccine (#1) [facility] Start: 02-14-2019 Potassium [Moles/Vol] POTASSIUM [facility] Start: 2014 Fasting lipid profile LIPID SCREENIN G [facility] Start: 1993 Third diphtheria, tetanus and acellular pertussis (DTaP) vaccination TDAP (ADULT) [facility] Start: 1992 Hepatitis C antibody , confirmatory test Hepatitis C Screening [facility] Start: 1992 Tetanus vaccination [facility] Start: 1989 HIV screening HIV Screening [facility] Start: 1987 HIV screening HIV SCREENING DISCUSSION [facility] Start: 1986 COVID-19 VACCINE (1) COVID-19 VACCIN E (1) [facility] Start: 1977 History and physical examination, annual for health maintenance Wellness Visit [facility] Start: 1974 Prostate specific antigen measurement PSA Level [facility] Start: 1974 Tetanus vaccination Tetanus: Every 1 0yrs [facility] Payers Date Payer Category Payer Self-pay 2020 Unknown [employer] PENDING [employer] PENDING O [id number] 2020-Present [id number] 2020 Unknown [id number] 2020 Worker's Compensation [id number] 1975 Unknown [id number] 1974 Unknown [id number] 1974 Unknown [id number] 1974 Unknown [id number] Unknown [id number] Unknown [id number] Unknown 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 [id number] Effective for all dates Social History Date Type Detail Facility Start: 08-27-2020 End: 04-10-2021 Tobacco smoking status NHIS Never smoker [facility] Start: 08-27-2020 End: 04-10-2021 Tobacco use and exposure Former user [facility] Start: 08-27-2020 End: 04-10-2021 Alcohol intake Current non-drinker of alcohol (finding) [facility] Start: 1975 Sex Assigned At Not on file V an [facility] Exposure to SARS-CoV-2 (event) Not sure [facility] End: 09-15-2018 History of tobacco use User of smokeless [facility] Tobacco smoking status NHIS Unknown if ever smoked [facility] Work Phone: Start: 1975 Sex Assigned At Male [facility] Evaluation note 01-21-2025 Note Date & Type Note Facility 01-21-2025 Evaluation note Diagnosis Onset Date Resolution Dental infection acute January 21, 2025 11:56am [facility] Work Phone: Note 04-10-2021 Assessment & Plan Note - Cecile Hopkins APRN-CNP - 04/10/2021 8:59 AM EDTAssessment & Plan Note - Cecile Hopkins APRN-CNP - 04/10/2021 8:56 AM EDT Note Date & Type Note Facility 04-10-2021 Miscellaneous Notes Associated Problem(s): Preventative health care [facility]: Call Friday-Friday 8 AM to 4:30 PM to schedule an appointment time. [address] [place] [place] [address] [facility] [address], [place], [place] [facility] [address] [place], [place] [facility] [address] Associated Problem(s): body mass index of 40.0-49.9 Chronic- stable Hypocaloric diet, Physical activity, Adjunctive psychological therapy (as an adjunct to diet and exercise). Weight loss beneficial for overal health, both cardiovascular and musculoskeletal. Central or abdominal obesity has a stronger association with obesity-related comorbidity than peripheral (i.e., subcutaneous) obesity, so waist circumference may be a better indicator of the risk for obesity-related comorbidity than BMI Associated Problem(s): Essential hypertension Chronic- stable Blood pressure often increases as weight increases. Losing just 10 pounds (4.5 kilograms) can help reduce your blood pressure. Regular physical activity : at least 30 to 60 minutes most days of the week : can lower your blood pressure by 4 to 9 millimeters of mercury (mm Hg). Limit sodium to 2,300 milligrams (mg) a day or less. Eating a diet that is rich in whole grains, fruits, vegetables and low-fat dairy products and skimps on saturated fat and cholesterol can lower your blood pressure by up to 14 mm Hg. This eating plan is known as the Dietary Approaches to Stop Hypertension (DASH) diet. On top of all the other dangers of smoking, the nicotine in tobacco products can raise your blood pressure by 10 mm Hg or more for up to an hour after you smoke. Smoking throughout the day means your blood pressure may remain constantly high. Stress or anxiety can temporarily increase blood pressure. documented in this encounter [facility] History of Present illness Narrative 04-10-2021 Ceicle Hopkins APRN-CNP - 04/10/2021 8:45 AM oDnna Humphries - 04/10/2021 8:45 AM EDT Note Date & Type Note Facility 04-10-2021 History of Presen t illness Narrative ((((Portions of this note utilized [employer] dictation software, please excuse any typographical or grammatical errors.)))) Chief Complaint Patient presents with Follow-up Hypertension HPI: Rios Delatorre is a 45 y.o. male 1975 who comes in for follow up of: Hypertension He presents for evaluation of hypertension. Age at onset of elevated blood pressure was 4 years ago. He indicates that he is feeling well and denies any symptoms referable to his elevated blood pressure. Specifically denies anxiety, blurred vision, chest pain, orthopnea, palpitations, peripheral edema and shortness of breath. Current medication regimen is as listed in this record. He is currently experiencing the following side effects from his medication: Pt states the losartan he stopped awhile ago due to feeling really tired shortly after taking it. He has since then also stopped the triamterene/hctz for the same reason. Blood pressure readings taken since the last visit are: Checks in the morning and evening everyday. It has been running 130's/80's without medication. Pt is requesting to avoid taking any medication if possible at this time. Cardiovascular risk factors: male gender, family history, hypertension, obesity, sedentary lifestyle and stress. Use of agents associated with hypertension: none and none. History of renal disease: no. History of flank trauma: no. Pt stopped taking his Triamterene about 3 weeks ago. He said that it was making him tired after he took it. Review of Systems Constitutional: Negative for fever. Respiratory: Negative for shortness of breath and wheezing. Cardiovascular: Negative for chest pain and leg swelling. Gastrointestinal: Negative for constipation and diarrhea. Psychiatric/Behavioral: Negative for behavioral problems and sleep disturbance. No visits with results within 3 Month(s) from this visit. Latest known visit with results is: Appointment on 09/16/2020 Component Date Value Ref Range Status TSH 09/16/2020 1.980 0.46 - 4.68 uIU/ML Final CHOLESTEROL 09/16/2020 209* 120 - 200 MG/DL Final TRIGLYCERIDE 09/16/2020 128 0 - 150 MG/DL Final HDL CHOLESTEROL 09/16/2020 41 26 - 63 MG/DL Final LDL CHOLESTEROL, CALCULATED 09/16/2020 142 MG/DL Final VLDL 09/16/2020 26* 5.0 - 25 MG/DL Final TCHOL/HDL RATIO, MANUAL ENTER 09/16/2020 5.10 RATIO Final Comment: RISK TOTAL/HDL RATIO MEN WOMEN 1/2 AVERAGE 3.43 3.27 AVERAGE 4.97 4.44 2X AVERAGE 9.55 7.05 3X AVERAGE 23.99 11.04 WBC (WHITE BLOOD COUNT) 09/16/2020 9.7 3.6 - 11.0 10*3/uL Final RBC 09/16/2020 5.51 4.0 - 6.1 10*6/uL Final HEMOGLOBIN (HGB) 09/16/2020 15.9 14.0 - 18.0 G/DL Final HEMATOCRIT (HCT) 09/16/2020 46.5 42.0 - 52.0 % Final MEAN CELL VOLUME 09/16/2020 84.4 80.0 - 100.0 FL Final Mean Cell HGB 09/16/2020 28.9 26.0 - 35.0 PG Final MEAN CELL HGB CONCENTRATION 09/16/2020 34.2 27.0 - 37.0 G/DL Final RBC DISTRIBUTION 09/16/2020 13.8 11.5 - 14.5 % Final PLATELET COUNT 09/16/2020 247 130 - 400 10*3/uL Final MEAN PLATELET VOLUME 09/16/2020 9.5 7.4 - 11.0 FL Final DIFFERENTIAL TYPE 09/16/2020 AUTO DIFF % Final NEUTROPHILS 09/16/2020 51.5 37.0 - 75.0 % Final LYMPHOCYTE 09/16/2020 38.5 20.0 - 55.0 % Final MONOCYTE % 09/16/2020 5.4 0.0 - 10.0 % Final EOSINOPHIL % 09/16/2020 4.1 0.0 - 11.0 % Final BASOPHIL % 09/16/2020 0.5 0.0 - 2.0 % Final Absolute Neutrophil Count 09/16/2020 5.0 1 - 6 10*3/uL Final LYMPHOCYTES, ABSOLUTE 09/16/2020 3.70* 1.2 - 3.4 10*3/uL Final MONOCYTES, ABSOLUTE 09/16/2020 0.5 0.0 - 0.7 10*3/uL Final ABSOLUTE EOSINOPHIL COUNT 09/16/2020 0.40 0 - 0 10*3/uL Final ABSOLUTE BASOPHIL COUNT 09/16/2020 0.1 0 - 0 10*3/uL Final GLUCOSE 09/16/2020 106* 70 - 100 MG/DL Final Comment: NORMAL <100 mg/dL PREDIABETES 101-126 mg/dL DIABETES 126 mg/dL or higher BUN 09/16/2020 13 7.0 - 20.0 MG/DL Final CREATININE SERUM 09/16/2020 0.86 0.7 - 1.2 MG/DL Final SODIUM 09/16/2020 139 137 - 145 MMOL/L Final POTASSIUM 09/16/2020 4.4 3.5 - 5.1 MMOL/L Final CHLORIDE 09/16/2020 102 98 - 107 MMOL/L Final Please note: Triglyceride levels of 600mg/dL or higher may positively bias chloride results by approximately 2.1 mmol CALCIUM 09/16/2020 9.7 8.4 - 10.2 MG/DL Final PROTEIN, TOTAL 09/16/2020 8.2 6.3 - 8.2 GM/DL Final ALBUMIN 09/16/2020 4.4 3.5 - 5.0 G/dl Final BILIRUBIN, TOTAL 09/16/2020 0.6 0.2 - 1.3 MG/DL Final AST 09/16/2020 25 17 - 59 IU/L Final ALKALINE PHOSPHATASE 09/16/2020 98 38 - 126 IU/L Final CARBON DIOXIDE (CO2) 09/16/2020 30 22 - 30 MMOL/L Final A/G Ratio 09/16/2020 1.2* 1.3 - 2.2 RATIO Final ALT 09/16/2020 29 <50 IU/L Final ESTIMATED GFR, NON AMER 09/16/2020 >60 ml/min/1.73sq.m Final ESTIMATED GFR, 09/16/2020 >60 ml/min/1.73sq.m Final GFR COMMENT 09/16/2020 Average GFR for 40-49 years old = 99. Final Comment: Chronic Kidney disease, GFR = <60. Kidney failure, GFR = <15. The GFR estimate is not adjusted for extreme body surface area or acute process, nor has it been validated for women or ethnic groups other than and . Current Medications: No current outpatient medications on file. Past History Past medical, surgical, family, and social histories have been reviewed and updated with the patient today and are located elsewhere in the medical record. Allergies: Patient has no known allergies. Physical Exam: Visit Vitals BP 132/80 (BP Location: Left arm, BP Position: Sitting) Pulse 80 Wt (!) 161 kg (355 lb) SpO2 97% BMI 48.15 kg/m Physical Exam Vitals and nursing note reviewed. Constitutional: Appearance: Normal appearance. He is well-developed. He is obese. Comments: Pleasant middle aged WM NAD wearing a mask HENT: Head: Normocephalic and atraumatic. Eyes: Conjunctiva/sclera: Conjunctivae normal. Neck: Thyroid: No thyromegaly. Trachea: No tracheal deviation. Cardiovascular: Rate and Rhythm: Normal rate and regular rhythm. Heart sounds: Normal heart sounds, S1 normal and S2 normal. No murmur heard. No friction rub. Pulmonary: Effort: Pulmonary effort is normal. No respiratory distress. Breath sounds: Normal breath sounds. No wheezing or rales. Musculoskeletal: General: Normal range of motion. Right lower leg: No edema. Left lower leg: No edema. Lymphadenopathy: Cervical: No cervical adenopathy. Skin: General: Skin is warm and dry. Neurological: Mental Status: He is alert and oriented to person, place, and time. Psychiatric: Mood and Affect: Mood normal. Behavior: Behavior normal. Behavior is cooperative. Assessment/Plan: Problem List Items Addressed This Visit body mass index of 40.0-49.9 - Primary Chronic- stable Hypocaloric diet, Physical activity, Adjunctive psychological therapy (as an adjunct to diet and exercise). Weight loss beneficial for overal health, both cardiovascular and musculoskeletal. Central or abdominal obesity has a stronger association with obesity-related comorbidity than peripheral (i.e., subcutaneous) obesity, so waist circumference may be a better indicator of the risk for obesity-related comorbidity than BMI Essential hypertension Chronic- stable Blood pressure often increases as weight increases. Losing just 10 pounds (4.5 kilograms) can help reduce your blood pressure. Regular physical activity : at least 30 to 60 minutes most days of the week : can lower your blood pressure by 4 to 9 millimeters of mercury (mm Hg). Limit sodium to 2,300 milligrams (mg) a day or less. Eating a diet that is rich in whole grains, fruits, vegetables and low-fat dairy products and skimps on saturated fat and cholesterol can lower your blood pressure by up to 14 mm Hg. This eating plan is known as the Dietary Approaches to Stop Hypertension (DASH) diet. On top of all the other dangers of smoking, the nicotine in tobacco products can raise your blood pressure by 10 mm Hg or more for up to an hour after you smoke. Smoking throughout the day means your blood pressure may remain constantly high. Stress or anxiety can temporarily increase blood pressure. Relevant Orders COMPREHENSIVE METABOLIC PANEL CBC, EDIF, PLATELET LIPID PANEL W CALCULATED LDL [facility] care [facility]: Call Friday-Friday 8 AM to 4:30 PM to schedule an appointment time. [address], [place], [place] [address] [facility], [place], [facility]- [address] [place], [place] [facility] - [address], [place], [place] [facility] [address] Other Visit Diagnoses Screening for prostate cancer Relevant Orders PSA, SCREENING Patient was advised to call with any questions or concerns. If symptoms worsen patient was advised to follow up in our office or the Emergency Dept. Benefits, Risks, Contraindications, and Complications of recommended treatments were explained the patient understands and agrees to proceed with plan. Return in about 6 months (around 10/11/2021) for HTN. DAMON Garnett 04/10/2021 Hypertension He presents for evaluation of hypertension. Age at onset of elevated blood pressure was 4 years ago. He indicates that he is feeling well and denies any symptoms referable to his elevated blood pressure. Specifically denies anxiety, blurred vision, chest pain, orthopnea, palpitations, peripheral edema and shortness of breath. Current medication regimen is as listed in this record. He is currently experiencing the following side effects from his medication: none. Blood pressure readings taken since the last visit are: Checks in the morning and evening everyday. It has been running 130's/80's Cardiovascular risk factors: male gender, family history, hypertension, obesity, sedentary lifestyle and stress. Use of agents associated with hypertension: none and none. History of renal disease: no. History of flank trauma: no. Pt stopped taking his Triamterene about 3 weeks ago. He said that it was making him tired after he took it. Review of Systems Constitutional: Negative for fever. Respiratory: Negative for shortness of breath and wheezing. Cardiovascular: Negative for chest pain and leg swelling. Gastrointestinal: Negative for constipation and diarrhea. Psychiatric/Behavioral: Negative for behavioral problems and sleep disturbance. documented in this encounter [employer] Instructions 04-10-2021 Patient Instructions Note Date & Type Note Facility 04-10-2021 Instructions Cecile Hopkins APRN-CNP - 04/10/2021 8:45 AM EDT Problem List Items Addressed This Visit body mass index of 40.0-49.9 - Primary Chronic- stable Hypocaloric diet, Physical activity, Adjunctive psychological therapy (as an adjunct to diet and exercise). Weight loss beneficial for overal health, both cardiovascular and musculoskeletal. Central or abdominal obesity has a stronger association with obesity-related comorbidity than peripheral (i.e., subcutaneous) obesity, so waist circumference may be a better indicator of the risk for obesity-related comorbidity than BMI Essential hypertension Chronic- stable Blood pressure often increases as weight increases. Losing just 10 pounds (4.5 kilograms) can help reduce your blood pressure. Regular physical activity : at least 30 to 60 minutes most days of the week : can lower your blood pressure by 4 to 9 millimeters of mercury (mm Hg). Limit sodium to 2,300 milligrams (mg) a day or less. Eating a diet that is rich in whole grains, fruits, vegetables and low-fat dairy products and skimps on saturated fat and cholesterol can lower your blood pressure by up to 14 mm Hg. This eating plan is known as the Dietary Approaches to Stop Hypertension (DASH) diet. On top of all the other dangers of smoking, the nicotine in tobacco products can raise your blood pressure by 10 mm Hg or more for up to an hour after you smoke. Smoking throughout the day means your blood pressure may remain constantly high. Stress or anxiety can temporarily increase blood pressure. Relevant Orders COMPREHENSIVE METABOLIC PANEL CBC, EDIF, PLATELET LIPID PANEL W CALCULATED LDL Preventative health care [facility]: Call Friday-Friday 8 AM to 4:30 PM to schedule an appointment time. [address] [place], [place] [address] [facility], [facility]- [address], [place], [place] [facility] - [address] [place], [place] [facility] [address] Other Visit Diagnoses Screening for prostate cancer Relevant Orders PSA, SCREENING PLEASE NOTE: Your testing is now electronically ordered. HOWEVER, although you DO NOT have to carry your orders with you as they will already be there when you arrive, it would HELP to AVOID CONFUSION if you bring your documentation included in your After Visit Summary delineating your tests. You WILL need to stop at the hospital Registration Office and tell them you are there to have your testing done. They will complete your registration and send you on to the appropriate department. You may keep this paperwork you are receiving today as a REMINDER to get the testing done. *Although I try to review new lab results throughout the day, I might not get to them until the end of the day or perhaps the next day. If the labs are obtained through the weekend, I will not review them until the beginning of the next week. *Please keep in mind that not all low or high results are clinically significant or urgent. *If there is an emergent laboratory result, it is laboratory policy that they will contact me or a provider working with me, and we will contact you as appropriate. ----- PLEASE MAKE SURE YOU BRING YOUR MEDICATION LIST WITH YOU TO ALL OFFICE VISITS WITH ME AND ANY OTHER HEALTHCARE PROVIDERS. ----- Patient was advised to call with any questions or concerns. If symptoms worsen patient was advised to follow up in our office or the Emergency Dept. Benefits, Risks, Contraindications, and Complications of recommended treatments were explained the patient understands and agrees to proceed with plan. documented in this encounter [facility] Evaluation note Note Date & Type Note Facility Evaluation note Diagnosis body mass index of 40.0-49.9- Primary Essential hypertension Unspecified essential hypertension Preventative health care Routine general medical examination at a health care facility Screening for prostate cancer Special screening for malignant neoplasm of prostate documented in this encounter [facility] Reason for referral (narrative) Note Date & Type Note Facility Reason for referral (narrative) No reason for referral information available [facility] Work Phone: Discharge Instructions * Attachments The following attachments cannot be sent through Care Everywhere. * Ankle Sprain (Lithuanian) documented in this encounter Assessments Diagnosis Sprain of right ankle, unspecified ligament, initial encounter- Primary Diagnosis Essential hypertension- Primary Unspecified essential hypertension Screening for thyroid disorder Diagnosis Sprain of anterior talofibular ligament of right ankle, initial encounter Instructions * Patient Instructions* Cecile Hopkins APRN-CNP - 09/15/2020 2:00 PM EDT Problem List Items Addressed This Visit Essential hypertension - Primary Chronic- not at goal Blood pressure often increases as weight increases. Losing just 10 pounds (4.5 kilograms) can help reduce your blood pressure. Regular physical activity : at least 30 to 60 minutes most days of the week : can lower your blood pressure by 4 to 9 millimeters of mercury (mm Hg). Limit sodium to 2,300 milligrams (mg) a day or less. Eating a diet that is rich in whole grains, fruits, vegetables and low-fat dairy products and skimps on saturated fat and cholesterol can lower your blood pressure by up to 14 mm Hg. This eating planis known as the Dietary Approaches to Stop Hypertension (DASH) diet. On top of all the other dangers of smoking, the nicotine in tobacco products can raise your blood pressure by 10 mm Hg or more for up to an hour after you smoke. Smoking throughout the day means yourblood pressure may remain constantly high. Stress or anxiety can temporarily increase blood pressure. Relevant Medications triamterene-hydrochlorothiazide 75-50 MG tablet Other Relevant Orders COMPREHENSIVE METABOLIC PANEL CBC, EDIF, PLATELET LIPID PANEL W CALCULATED LDL TSH Screening for thyroid disorder Relevant Orders TSH PLEASE NOTE: Your testing is now electronically ordered. HOWEVER, although you DO NOT have to carryyour orders with you as they will already be there when you arrive, it would HELP to AVOID CONFUSION if you bring your documentation included in your After Visit Summary delineating your tests. You WILL need to stop at the hospital Registration Office and tell them you are there to have your testing done. They will complete your registration and send you on to the appropriate department. You may keep this paperwork you are receiving today as a REMINDER to get the testing done. PLEASE MAKE SURE YOU BRING YOUR MEDICATION LIST WITH YOU TO ALL OFFICE VISITS WITH ME AND ANY OTHERHEALTHCARE PROVIDERS. Patient was advised to call with any questions or concerns. If symptoms worsen patient was advised to follow up in our office or the Emergency Dept. Benefits, Risks, Contraindications, and Complications of recommended treatments were explained the patient understands and agrees to proceed with plan. documented in this encounter History of Present Illness * Cecile Hopkins APRN-CNP - 09/15/2020 2:00 PM EDT ((((Portions of this note utilized [employer] dictation software, please excuse any typographical or grammatical errors.)))) Rios Delatorre is a 44 y.o. male 1975 who comes in with the following complaint(s): Chief Complaint Patient presents with [facility] Hypertension HPI: Dr. Rodriguez in [place]. Rios is a new patient here to establish care and would like to discuss his BP. 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 He denies any episodes of chest pain. Has been out of his medication for over 6 months. Hypertension He presents for evaluation of hypertension. Age at onset of elevated blood pressure was 4 years ago. He indicates that he is feeling well and denies any symptoms referable to his elevated blood pressure. Specifically denies anxiety, blurred vision, chest pain, orthopnea, palpitations, peripheral edema and shortness of breath. Current medication regimen is as listed in this record. He is currentlyexperiencing the following side effects from his medication: none. Blood pressure readings taken since the last visit are: Higher when checked. Cardiovascular risk factors: male gender, family history, hypertension, obesity, sedentary lifestyle and stress. Use of agents associated with hypertension: none and none. History of renal disease: no. History of flank trauma: no. Review of Systems Constitutional: Negative for fever. Respiratory: Negative for shortness of breath and wheezing. Cardiovascular: Positive for leg swelling. Negative for chest pain. Gastrointestinal: Negative for constipation, diarrhea, nausea and vomiting. Musculoskeletal: Positive for arthralgias and joint swelling. Right ankle injury, fell recently Neurological: Negative for weakness and headaches. No visits with results within 3 Month(s) from this visit. Latest known visit with results is: Admission on 02/14/2018, Discharged on 02/14/2018 Component Date Value Ref Range Status TROPONIN 02/14/2018 <0.02 0 - 0.08 ng/mL Final WBC (WHITE BLOOD COUNT) 02/14/2018 10.8 3.6 - 11.0 /cmm Final RBC 02/14/2018 5.28 4.0 - 6.1 /cmm Final HEMOGLOBIN (HGB) 02/14/2018 15.2 14.0 - 18.0 G/DL Final HEMATOCRIT (HCT) 02/14/2018 45.0 42.0 - 52.0 % Final MEAN CELL VOLUME 02/14/2018 85.1 80.0 - 100.0 FL Final Mean Cell HGB 02/14/2018 28.8 26.0 - 35.0 PG Final MEAN CELL HGB CONCENTRATION 02/14/2018 33.8 27.0 - 37.0 G/DL Final RBC DISTRIBUTION 02/14/2018 14.8* 11.5 - 14.5 % Final PLATELET COUNT 02/14/2018 233 130.0 - 400.0 /cmm Final MEAN PLATELET VOLUME 02/14/2018 10.0 7.4 - 11.0 FL Final DIFFERENTIAL TYPE 02/14/2018 AUTO DIFF % Final NEUTROPHILS 02/14/2018 55.1 37.0 - 75.0 % Final LYMPHOCYTE 02/14/2018 36.5 20.0 - 55.0 % Final MONOCYTE % 02/14/2018 6.0 0.0 - 10.0 % Final EOSINOPHIL % 02/14/2018 2.0 0.0 - 11.0 % Final BASOPHIL % 02/14/2018 0.4 0.0 - 2.0 % Final Absolute Neutrophil Count 02/14/2018 6.0 1.0 - 7.0 x10 Final LYMPHOCYTES, ABSOLUTE 02/14/2018 4.00 X10 Final MONOCYTES, ABSOLUTE 02/14/2018 0.6 X10 Final ABSOLUTE EOSINOPHIL COUNT 02/14/2018 0.20 X10 Final ABSOLUTE BASOPHIL COUNT 02/14/2018 0.0 X10 Final GLUCOSE 02/14/2018 117* 70 - 100 MG/DL Final Comment: NORMAL <100 mg/dL PREDIABETES 101-126 mg/dL DIABETES 126 mg/dL or higher BUN 02/14/2018 17 7 - 20 MG/DL Final CREATININE SERUM 02/14/2018 0.9 0.7 - 1.2 MG/DL Final SODIUM 02/14/2018 142 137 - 145 MMOL/L Final POTASSIUM 02/14/2018 3.9 3.5 - 5.1 MMOL/L Final CHLORIDE 02/14/2018 105 98 - 107 MMOL/L Final CALCIUM 02/14/2018 9.6 8.4 - 10.2 MG/DL Final PROTEIN, TOTAL 02/14/2018 7.4 6.3 - 8.2 GM/DL Final ALBUMIN 02/14/2018 4.3 3.5 - 5.0 G/dl Final BILIRUBIN, TOTAL 02/14/2018 0.4 0.2 - 1.3 MG/DL Final AST 02/14/2018 28 17 - 59 IU/L Final ALKALINE PHOSPHATASE 02/14/2018 91 38 - 126 IU/L Final CARBON DIOXIDE (CO2) 02/14/2018 24 22 - 30 MMOL/L Final A/G Ratio 02/14/2018 1.4 1.3 - 2.2 RATIO Final ALT 02/14/2018 58 21 - 72 IU/L Final ESTIMATED GFR, NON AMER 02/14/2018 >60 ml/min/1.73sq.m Final ESTIMATED GFR, 02/14/2018 >60 ml/min/1.73sq.m Final GFR COMMENT 02/14/2018 Average GFR for 40-49 years old = 99. Final Comment: Chronic Kidney disease, GFR = <60. Kidney failure, GFR = <15. The GFR estimate is not adjusted for extreme body surface area or acute process, nor has it been validated for women or ethnic groups other than and . Problem List: Patient Active Problem List Diagnosis body mass index of 40.0-49.9 Essential hypertension Screening for thyroid disorder Past Medical History: Past Medical History: Diagnosis Date Arthritis Essential hypertension, benign LA (myocardial infarction) 1999 LA (myocardial infarction) 2017 Past Surgical History: No past surgical history on file. Social History: Social History Socioeconomic History Marital status: Spouse name: Not on file Number of children: Not on file Years of education: Not on file Highest education level: Not on file Occupational History Not on file Social Needs Financial resource strain: Not on file Food insecurity Worry: Not on file Inability: Not on file Transportation needs Medical: Not on file Non-medical: Not on file Tobacco Use Smoking status: Never Smoker Smokeless tobacco: Former User Substance and Sexual Activity Alcohol use: No Drug use: No Sexual activity: Not on file Lifestyle Physical activity Days per week: Not on file Minutes per session: Not on file Stress: Not on file Relationships Social connections Talks on phone: Not on file Gets together: Not on file Attends voodoo service: Not on file Active member of club or organization: Not on file Attends meetings of clubs or organizations: Not on file Relationship status: Not on file Intimate partner violence Fear of current or ex partner: Not on file Emotionally abused: Not on file Physically abused: Not on file Forced sexual activity: Not on file Other Topics Concern Not on file Social History Narrative Not on file Family History: Family History Problem Relation Age of Onset Stomach Cancer Mother Asthma Father Dementia Father Diabetes Father Hypertension Father Bleeding or Clotting Problems Sister Current Medications: Current Outpatient Medications Medication Sig ibuprofen 800 MG tablet Take 1 tablet by mouth every 6 hours as needed for Moderate Pain. triamterene-hydrochlorothiazide 75-50 MG tablet Take 0.5 tablets by mouth daily. Allergies: Patient has no known allergies. Physical Exam: Visit Vitals BP 144/90 (BP Location: Left arm, BP Position: Sitting) Pulse 80 Ht 1.829 m (6') Wt (!) 155.6 kg (343 lb) SpO2 97% BMI 46.52 kg/m Physical Exam Vitals signs and nursing note reviewed. Constitutional: General: He is not in acute distress. Appearance: Normal appearance. He is well-developed. Comments: Pleasant middle aged WM NAD, wearing a mask HENT: Head: Normocephalic and atraumatic. Eyes: Conjunctiva/sclera: Conjunctivae normal. Neck: Musculoskeletal: Normal range of motion. Thyroid: No thyromegaly. Vascular: No carotid bruit or JVD. Trachea: Trachea normal. No tracheal deviation. Cardiovascular: Rate and Rhythm: Normal rate and regular rhythm. Pulses: Normal pulses. Radial pulses are 2+ on the right side and 2+ on the left side. Dorsalis pedis pulses are 2+ on the right side and 2+ on the left side. Heart sounds: Normal heart sounds. No murmur. No friction rub. Pulmonary: Effort: Pulmonary effort is normal. No respiratory distress. Breath sounds: Normal breath sounds. No wheezing or rales. Abdominal: General: Bowel sounds are normal. There is no distension. Palpations: Abdomen is soft. Tenderness: There is no abdominal tenderness. There is no guarding or rebound. Musculoskeletal: Normal range of motion. Lymphadenopathy: Cervical: No cervical adenopathy. Skin: General: Skin is warm and dry. Neurological: General: No focal deficit present. Mental Status: He is alert and oriented to person, place, and time. Gait: Gait normal. Psychiatric: Mood and Affect: Mood normal. Behavior: Behavior normal. Behavior is cooperative. Assessment/Plan: Problem List Items Addressed This Visit Essential hypertension - Primary Chronic- not at goal Blood pressure often increases as weight increases. Losing just 10 pounds (4.5 kilograms) can help reduce your blood pressure. Regular physical activity : at least 30 to 60 minutes most days of the week : can lower your blood pressure by 4 to 9 millimeters of mercury (mm Hg). Limit sodium to 2,300 milligrams (mg) a day or less. Eating a diet that is rich in whole grains, fruits, vegetables and low-fat dairy products and skimps on saturated fat and cholesterol can lower your blood pressure by up to 14 mm Hg. This eating planis known as the Dietary Approaches to Stop Hypertension (DASH) diet. On top of all the other dangers of smoking, the nicotine in tobacco products can raise your blood pressure by 10 mm Hg or more for up to an hour after you smoke. Smoking throughout the day means yourblood pressure may remain constantly high. Stress or anxiety can temporarily increase blood pressure. Relevant Medications triamterene-hydrochlorothiazide 75-50 MG tablet Other Relevant Orders COMPREHENSIVE METABOLIC PANEL CBC, EDIF, PLATELET LIPID PANEL W CALCULATED LDL TSH Screening for thyroid disorder Relevant Orders TSH Return in about 3 months (around 12/16/2020) for HTN. DAMON Garnett 09/15/2020 * Marlene Malhotra LPN - 09/15/2020 2:00 PM EDT Rios is a new patient here to establish care and would like to discuss his BP. 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 He denies any episodes of chest pain. Has been out of his medication for over 6 months. Review of Systems Constitutional: Negative for fever. Respiratory: Negative for shortness of breath and wheezing. Cardiovascular: Positive for leg swelling. Negative for chest pain. Gastrointestinal: Negative for constipation, diarrhea, nausea and vomiting. Musculoskeletal: Positive for arthralgias and joint swelling. Right ankle injury, fell recently Neurological: Negative for weakness and headaches. documented in this encounter Summary Purpose Family History No Family History Records FoundNo Family History Records FoundNo Family History Records FoundNo Family History Records FoundNo Family History Records Found Advance Directives No Advanced Directives Records FoundDocuments on File Type Date Recorded Patient Wellness Coordinator Expl anation Advance Directives and Livin g Will 09/22/2020 1:06 PM Reason for Referral Status Reason Specialty Diagnoses / Procedures Referred By Contact Referred To Contact Pending Review Radiology Diagnoses Sprain of anterior talofibular ligament of right ankle, initial encounter Procedures CT Ankle Right Without Contrast Denise Torres MD [address] [place] [id number] Chief Complaint and Reason for Visit Chief Complaint Admit Date ear pain January 21, 2025 11:56am CONCERN FOR TOOTH INFECTION May 07 8:11am Reason for Visit Admit Date Dental infection January 21, 2025 11:56am Additional Source Comments Reason for Visit (unrecogniz ed section and content) Reason Comments Ankle Pain pt ambulates to ER c /o right ankle pain. 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 On arrival pt has swelling and dark purple bruising to the lateral ankle and to the bruising to the base of the third toe. Pt has a good pedal pulse. Reason Comments Establish Care Hypertension Status Reason Specialty Diagnoses / Procedures Referred By Contact Referred To Contact Pending Review Radiology Diagnoses Sprain of anterior talofibular ligament of right ankle, initial encounter Procedures CT Ankle Right Without Contrast Denise Torres MD [address] [place] [id number] Reason Comments Follow-up Hypertension Eva Brody RN - 08/27/2020 10:54 AM Eva Recio RN - 08/27/2020 10:43 AM Sean Kelly MD - 08/27/2020 10:22 AM EDT ED Notes (unrecognized secti on and content) Workers comp papers filled and copies given to patient and originals given to reg. Lab called and states the do not have a contract with his employer so he does not need a drug screen or alcohol test. History Chief Complaint Patient presents with Ankle Pain pt ambulates to ER c/o right ankle pain. 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 On arrival pt has swelling and dark purple bruising to the lateral ankle and to the bruising to the base of the third toe. Pt has a good pedal pulse. 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 He is coming today because of increasing pain, swelling and ecchymosis. No other injury reported Past Medical History: Diagnosis Date LA (myocardial infarction) No past surgical history on file. No family history on file. Social History Tobacco Use Smoking status: Never Smoker Smokeless tobacco: Former User Substance Use Topics Alcohol use: No Drug use: No Review of Systems Constitutional: Negative for chills and fever. HENT: Negative. Respiratory: Negative for cough and shortness of breath. Cardiovascular: Negative for chest pain. Gastrointestinal: Negative for nausea and vomiting. Genitourinary: Negative for dysuria. Musculoskeletal: Negative for back pain and neck pain. Neurological: Negative for headaches. Psychiatric/Behavioral: Negative. All other systems reviewed and are negative. Physical Exam BP 172/77 Pulse 81 Temp 98.6 F (37 C) (Temporal) Resp 18 Ht 1.829 m (6') Wt (!) 156.5 kg (345 lb) BMI 46.79 kg/m Smoking Status Never Smoker Physical Exam Vitals signs and nursing note reviewed. Constitutional: General: He is not in acute distress. Appearance: He is obese. He is not ill-appearing or toxic-appearing. HENT: Head: Normocephalic and atraumatic. Neck: Musculoskeletal: Normal range of motion and neck supple. Cardiovascular: Rate and Rhythm: Normal rate and regular rhythm. Pulmonary: Effort: Pulmonary effort is normal. Abdominal: Tenderness: There is no abdominal tenderness. Musculoskeletal: Comments: Significant swelling, tenderness and ecchymosis noticed anteriorly and laterally on the right ankle Skin: General: Skin is warm. Capillary Refill: Capillary refill takes less than 2 seconds. Neurological: General: No focal deficit present. Mental Status: He is oriented to person, place, and time. Psychiatric: Mood and Affect: Mood normal. ED Course XR ANKLE RIGHT 3+ VIEWS Final Result IMPRESSION: There is soft tissue swelling without acute bony abnormality. 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 Losing just 10 pounds (4.5 kilograms) can help reduce your blood pressure. Regular physical activity : at least 30 to 60 minutes most days of the week : can lower your blood pressure by 4 to 9 millimeters of mercury (mm Hg). Limit sodium to 2,300 milligrams (mg) a day or less. Eating a diet that is rich in whole grains, fruits, vegetables and low-fat dairy products and skimps on saturated fat and cholesterol can lower your blood pressure by up to 14 mm Hg. This eating plan is known as the Dietary Approaches to Stop Hypertension (DASH) diet. On top of all the other dangers of smoking, the nicotine in tobacco products can raise your blood pressure by 10 mm Hg or more for up to an hour after you smoke. Smoking throughout the day means your blood pressure may remain constantly high. Stress or anxiety can temporarily increase blood pressure. documented in this encounter (unrecognized sect ion and content) No Status Records FoundNo Status Records FoundNo Status Records FoundNo Status Records FoundNo Status Records Found INFORMATION SOURCE (unrecogn ized section and content) DATE CREATED AUTHOR 09/16/2020 [facility] DATE CREATED AUTHOR AUTHOR'S ORGANIZ ATION 11/01/2020 [facility] DATE CREATED AUTHOR AUTHOR'S ORGANIZ ATION 05/01/2021 [facility] DATE CREATED AUTHOR AUTHOR'S ORGANIZ ATION 08/06/2023 [facility] DATE CREATED AUTHOR AUTHOR'S ORGANIZ ATION 05/09/2025 [facility] Care Teams (unrecognized sec tion and content) Team Status: Inactive Member Role Status Dates Ortiz BORGES PA Attending Provider Active Sta rt: January 21, 2025 End: January 21, 2025 Team Status: Inactive Member Role Status Dates KATERINA Velez Attending Provider Active Start: May 07, 2025 End: May 07, 2025 Goals (unrecognized section and content) Goals may be documented in a n alternate section FOR RECORDS PERTAINING TO PATIENTS WHO ARE OR HAVE BEEN ENROLLED IN A CHEMICAL DEPENDENCY/SUBSTANCEABUSE PROGRAM, SOME INFORMATION MAY BE OMITTED. This clinical summary was aggregated from multiple sources. Caution should be exercised in using it in the provision of clinical care. This summary normalizes information from multiple sources, and as a consequence, information in this document may materially change the coding, format and clinical context of patient data. In addition, data may be omitted in some cases. CLINICAL DECISIONS SHOULD BE BASED ON THE PRIMARY CLINICAL RECORDS. [facility] [employer] provides no warranty or guarantee of the accuracy or completeness of information in this document.
[2025-05-14 14:33] VITALS: BP 135/60; PULSE 82; RESP 16; TEMP 37.1; O2SAT 95
[2025-05-14] MEDS: Lidocaine Jelly 2% 20 ML Syringe (URO-JET) 1 APPLIC TOPICAL (14:40)
[2025-05-14 14:54] LABS: Bacteria 0 SEEN /hpf (None Seen); Mucous, Urine 0 SEEN /hpf (<or=2+)
[2025-05-14 14:56] LABS: Color, Urine Yellow (Yellow); Glucose, Dipstick Normal (Normal); Ketone-Dipstick Negative (Negative); Leukocyte Esterase-Dipstick 25 /ul (Negative); Nitrite-Dipstick Negative (Negative); Occult Blood-Urine 25 /ul (Negative); Protein-Dipstick 30 mg/dl (Negative); Urine Bilirubin Dipstick Negative (Negative); Urine Clarity Clear (Clear); Urine Urobilinogen Normal (Normal)
[2025-05-14 15:03] LABS: Red Blood Cells-Urine 0-5 SEEN /hpf (0-5); Squamous Epithelial Cells - UA 0-5 SEEN /hpf (0-5); White Blood Cells 5-10 SEEN /hpf (0-5)
[2025-05-14 15:28] LABS: Absolute Lymphocyte Count 2.57 X10^3/uL (0.83-4.51); Absolute Neutrophil Count 8.3 X10^3/uL (2.0-7.7); Basophil# 0.04 X10^3/uL; Basophil% 0.3 % (0-1); Eosinophil# 0.07 X10^3/uL; Eosinophils% 0.6 % (0-5); Hematocrit 43.5 % (40-54); Hemoglobin 14.9 g/dL (13.0-16.5); Lymphocyte # 2.57 X10^3/ul (0.83-4.51); Lymphocyte % 21.8 % (19-41); Mean Corp Hgb Conc 34.3 g/dL (32-36); Mean Corpuscular Hgb 28.8 pg (27.0-32.0); Mean Corpuscular Volume 84.1 fL (80-94); Mean Platelet Vol. 11.3 fl (6.2-12.0); Monocyte# 0.78 X10^3/uL; Monocyte% 6.6 % (0-10); NRBC Flagged by Analyzer 0 % (0-5); Neutrophil # 8.27 X10^3/uL (2.7-7.7); Platelet Count 313 K/mm3 (150-450); RBC Distribution Width CV 13.4 % (11.6-14.6); RBC Distribution Width SD 41.2 fl (35.1-43.9); Red Blood Count 5.17 M/mm3 (4.6-6.2); White Blood Count 11.8 K/mm3 (4.4-11.0)
[2025-05-14 15:48] LABS: Anion Gap 13 (5-15); BUN 20 mg/dL (4-19); BUN/Creat Ratio 19.8 RATIO (10-20); Calcium,Total 9.3 mg/dL (7.6-11.0); Carbon Dioxide 21.7 mmol/L (21.0-32.0); Chloride 106 mmol/L (98-108); EST Glomerular Filtration Rate 92 (>60); Estimated Creatinine Clearance 133.72 ml/min (50-250); Glucose 104 mg/dL (70-99); Potassium 4.1 mmol/L (3.3-5.1); Sodium Level 140 mmol/L (133-145)
[2025-05-14 16:00] VITALS: BP 125/56; PULSE 80; RESP 16; O2SAT 98
[2025-05-14] MEDS: Cefdinir 300 MG Capsule PO (16:06)
[2025-05-14] MEDS: Tamsulosin HCl 0.4 MG Capsule PO (16:06)
[2025-05-14 16:08] VITALS: BP 125/56; PULSE 78; RESP 16; TEMP 36.7; O2SAT 100
== END 2025-05-14 16:10 | disposition home or self-care (01) ==
PROVIDERS: Emergency Provider Emergency Medicine; Visit Provider Emergency Medicine
DX: R33.9 Retention of urine, unspecified (principal); N39.0 Urinary tract infection, site not specified
CPT/HCPCS: 80048; 81001; 85025; 87086; 99284; A4216

== ENCOUNTER 2025-05-14 20:56 | Emergency (ER) | payer SELFPAY ==
[2025-05-14 20:57] VITALS: BP 147/90; PULSE 91; RESP 18; TEMP 36.6; O2SAT 95
--- OUTSIDE RECORDS SUMMARY | 2025-05-14 21:51 | XMS RPT_ITS | CCD ---
Author Organization [facility] Care Team Providers Care Digital Recruiter Name Role Phone Unavailable Primary Care Provider UnavailCecile De Primary Care Provider DENISE TORRES Referring Unavailable DENISE TORRES Attending Unavailable DENISE TORRES Admitting Unavailable CECILE HOPKISN Primary Care Unavailable Sandeep RESPIRATORY CARE ASSISTANT-Cecile MONCADA Primary Care Provider Sean Jiang Attending Unavailable SOL BROWN Admitting Unavailable AYUSH BROWNLAS Consulting Unavailable SOL BROWN Attending Unavailable NONE, NONE Primary Care Unavailable EISENMAVISWN, SOL Consulting Unavailable Craft [phone], [phone] Les R. Consu lting Unavailable CRAFT DO, LES R Consulting Unavailable NONE, NONE Consulting Unavailable NONE, NONE Consulting Unavailable CARSON JENKINS, DR HARDIN Admitting Unavaila ble CARSON DO, DR HARDIN Consulting Unavaila ble CARSON DO, DR HARDIN Attending Unavaila ble NONE, NONE Primary Care Unavailable CARSON DO, DR HARDIN Consulting Unavaila ble NONE, NONE Consulting Unavailable NONE, NONE Consulting Unavailable Ortiz Velasquez Attending Provider Albert Hamilton Attending Provider Ortiz Velasquez Attending Unavailable Ortiz Velasquez Attending Unavailable Albert Rodarte Attending Unavailable Dr. Boaz Huang DO Emergency Provider [phone] Care Physician, No Primary Primary Care Provider Unavailable Medications Current Medications Medication Drug Class(es) Dates Sig (Normalized) Sig (Original) amoxicillin 875 mg / clavulanate 125 mg oral tablet (4 sources) Penicillin-class Antibacterial Start: 05-07-2025 Amoxicillin-Pot Clavulanate 875-125 mg tablet Active 1 {tbl} PO TWICE A DAY 12 09May 07, 2025 12:00am May 16, 2025 12:00am Start: 01-21-2025 End: 01-31-2025 Amoxicillin-Pot Clavulanate 875-125 mg tablet Discontinued 1 {tbl} PO Q12H 12 09January 21, 2025 1:00am January 30, 2025 1:00am January 31, 2025 12:12am cefdinir 300 mg oral capsule (1 source) Cephalosporin Antibacterial Start: 05-14-2025 take 1 capsule by mouth every twelve hours Cefdinir 300 mg capsule Active 300 mg PO Q12H May 14, 2025 12:00am hydroCHLOROthiazide 50 mg / triamterene 75 mg oral tablet (3 sources) Potassium-sparing Diuretic, Thiazide Diuretic Start: 09-15-2020 End: 04-10-2021 take 0.5 tablet by mouth once daily triamterene-hydr ochlorothiazide 75-50 MG tablet Indications: Essential hypertension Take 0.5 tablets by mouth daily. 15 tablet 3 09/15/2020 Active tamsulosin hydrochloride 0.4 mg oral capsule (1 source) alpha-Adrenergic Triston Start: 05-14-2025 take 1 capsule by mouth once daily Tamsulosin (Flomax) 0.4 mg capsule Active 0.4 mg PO DAILY May 14, 2025 12:00am Completed/Discontinued Medications Medication Drug Class(es) Dates Sig [...] 30 tablet 3 12/07/2020 04/10/2021 Discontinued Problems Problem Classification Problem Date Documented Date Episodic/Chronic Administrative/social admission (3 sources) Administrative reason for encounter; Translations: [Encounter for other administrative examinations] Onset: 09-03-2024 09-03-2024 Episodic Disorders of teeth and jaw (5 sources) Infection of tooth; Translations: [Periapical abscess without sinus] 01-21-2025 Episodic Essential hypertension (4 sources) Essential hypertension; Translations: [Essential (primary) hypertension] Onset: 09-15-2020 09-15-2020 Chronic Genitourinary symptoms and ill-defined conditions (1 source) Acute retention of urine ; Translations: [Other retention of urine] 05-14-2025 Episodic Immunizations and screening for infectious disease (3 sources) Contact with and (suspected) exposure to infections with a predominantly sexual mode of transmission; Translations: [CONTCT W EXPOS INFECT SEXUAL TRNSMS] Onset: 06-07-2023 Episodic Osteoarthritis (1 source) Unilateral primary osteoarthritis, left knee; Translations: [UNI PRIM OSTEOARTHRITIS LT KNEE] Onset: 08-05-2023 Chronic Other circulatory disease (2 sources) Elevated blood-pressure reading without diagnosis of hypertension; Translations: [Elevated blood-pressure reading, without diagnosis of hypertension] 05-07-2025 Episodic Other non-traumatic joint disorders (2 sources) Pain [...] [Screening for thyroid disorder] Onset: 09-15-2020 09-15-2020 Urinary tract infections (1 source) Acute urinary tract infection; Translations: [Urinary tract infection, site not specified] 05-14-2025 Episodic Results Test Name Value Interpretation Reference Range Facility Absolute lymphocyte countOrd ered By: Boaz Huang on 05-14-2025 Lymphocytes Auto (Unsp spec) [#/Vol] 2.57 10*3/uL 0.83-4.51 [facility] Absolute neutrophil countOrd ered By: Boaz Huang on 05-14-2025 Neutrophils (Bld) [#/Vol] 8.3 10*3/uL High 2.0-7.7 [facility] Anion gap in Serum or Plasma Ordered By: Boaz Huang on 05-14-2025 Anion gap [Moles/Vol] 13 mmol/L 5-15 [facility] Automated lymphocyte count a s percentage of total leukocytesOrdered By: Boaz Huang on 05-14-2025 Lymphocytes/100 WBC Auto (Unsp spec) 21.8 % 19-41 [facility] BUN/creatinine ratioOrdered By: Boaz Huang on 05-14-2025 Urea nitrogen/Creatinine [Mass ratio] 19.8 mg/mg 10-20 [facility] Basophil percentageOrdered B y: Boaz Huang on 05-14-2025 Basophils/100 WBC (Bld) 0.3 % 0-1 [facility] Bilirubin Test strip Ql (U)O rdered By: Boaz Huang on 05-14-2025 Bilirubin Ql (U) Negative Negative [facility] Carbon dioxide, total [Moles /volume] in Central venous bloodOrdered By: Boaz Huang on 05-14-2025 CO2 [Moles/Vol] 21.7 mmol/L 21.0-32.0 [facility] Chloride assayOrdered By: Harvey Huang on 05-14-2025 Chloride [Moles/Vol] 106 mmol/L 98-108 [facility] Eosinophil percentageOrdered By: Boaz Huang on 05-14-2025 Eosinophils/100 WBC (Bld) 0.6 % 0-5 [facility] Erythrocyte distribution wid th ratioOrdered By: Boaz Huang on 05-14-2025 Erythrocyte distribution width (RBC) [Ratio] 13.4 % 11.6-14.6 [facility] Erythrocyte distribution wid th standard deviationOrdered By: Boaz Huang on 05-14-2025 Erythrocyte distribution width (RBC) [Ratio] 41.2 fl 35.1-43.9 [facility] Glomerular filtration rate ( GFR) estimation/1.73 sq m using serum, plasma, or whole bOrdered By: Boaz Huang on 05-14-2025 GFR/1.73 sq M.predicted among non-blacks MDRD (S/P/Bld) [Vol rate/Area] 92 mL/min/{1.73_m2} >60 [facility] Comment on above: mL/min/1.73m2 CKD-EP I Creatinine Equation (2020) Hematocrit Auto (Bld) [Volum e fraction]Ordered By: Boaz Huang on 05-14-2025 Hematocrit (Bld) [Volume fraction] 43.5 % 40-54 [facility] Hemoglobin measurementOrdere d By: Boaz Huang on 05-14-2025 Hemoglobin (Bld) [Mass/Vol] 14.9 g/dL 13.0-16.5 [facility] Immature granulocytes/100 WB C Auto (Bld)Ordered By: Boaz Huang on 05-14-2025 Immature granulocytes/100 WBC (Bld) 0.700 % 0.0-0.9 [facility] Comment on above: IG% - Immature Granu locytes (promyelocytes, myelocytes and metamyelocytes) > 1% indicates that a LEFT SHIFT is Present. Ketones Test strip Ql (U)Ord ered By: Boaz Huang on 05-14-2025 Ketones Ql (U) Negative Negative [facility] MCV (mean corpuscular volume ) determinationOrdered By: Boaz Huang on 05-14-2025 MCV (RBC) [Entitic vol] 84.1 fL 80-94 [facility] Mean corpuscular hemoglobin (MCH) determinationOrdered By: Boaz Huang on 05-14-2025 MCH (RBC) [Entitic mass] 28.8 pg 27.0-32.0 [facility] Mean corpuscular hemoglobin concentration (MCHC) determinationOrdered By: Boaz Huang on 05-14-2025 MCHC (RBC) [Mass/Vol] 34.3 g/dL 32-36 [facility] Mean platelet volume determi nationOrdered By: Boaz Huang on 05-14-2025 Platelet mean volume (Bld) [Entitic vol] 11.3 fL 6.2-12.0 [facility] Microscopic analysis of urin e for red blood cells (RBC)Ordered By: Boaz Huang on 05-14-2025 Microscopic analysis of urine for red blood cells (RBC) 0-5 SEEN /hpf 0-5 [facility] Monocyte percentageOrdered B y: Boaz Huang on 05-14-2025 Monocytes/100 WBC (Bld) 6.6 % 0-10 [facility] Mucus LM Ql (Urine sed)Order ed By: Boaz Huang on 05-14-2025 Mucus Ql (Urine sed) 0 SEEN /hpf [facility] Neutrophil percentageOrdered By: Boaz Huang on 05-14-2025 Neutrophils/100 WBC (Bld) 70.0 % 47-70 [facility] Nitrite Test strip Ql (U)Ord ered By: Boaz Huang on 05-14-2025 Nitrite Ql (U) Negative Negative [facility] Nucleated red blood cell per centageOrdered By: Boaz Huang on 05-14-2025 Nucleated RBC/100 WBC (Bld) [Ratio] 0 % 0-5 [facility] Platelet countOrdered By: Harvey Huang on 05-14-2025 Platelets (Bld) [#/Vol] 313 10*3/uL 150-450 [facility] Potassium measurement (mass/ volume)Ordered By: Boaz Huang on 05-14-2025 Potassium (Unsp spec) [Mass/Vol] 4.1 mmol/L 3.3-5.1 [facility] Protein Test strip Ql (U)Ord ered By: Boaz Huang on 05-14-2025 Protein Ql (U) 30 mg/dl High Negative [facility] RBC Auto (Bld) [#/Vol]Ordere d By: Boaz Huang on 05-14-2025 RBC (Bld) [#/Vol] 5.17 10*6/uL 4.6-6.2 [facility] Serum creatinine measurement (mass/volume)Ordered By: Boaz Huang on 05-14-2025 Creatinine [Mass/Vol] 1.00 mg/dL 0.70-1.20 [facility] Serum glucose measurement (m ass/volume)Ordered By: Boaz Huang on 05-14-2025 Glucose [Mass/Vol] 104 mg/dL High 70-99 [facility] Serum or plasma calcium lamont urement (mass/volume)Ordered By: Boaz Huang on 05-14-2025 Calcium [Mass/Vol] 9.3 mg/dL 7.6-11.0 [facility] Serum or plasma urea nitroge n measurement (mass/volume)Ordered By: Boaz Huang on 05-14-2025 Urea nitrogen [Mass/Vol] 20 mg/dL High 4-19 [facility] Sodium levelOrdered By: Boaz Huang on 05-14-2025 Sodium [Moles/Vol] 140 mmol/L 133-145 [facility] Squamous epithelial cells de tection in urine sediment by light microscopyOrdered By: Boaz Huang on 05-14-2025 Epithelial cells.squamous LM Ql (Urine sed) 0-5 SEEN /hpf 0-5 [facility] Urine clarityOrdered By: Ranjeet Huang on 05-14-2025 Clarity (U) Clear Clear [facility] Urine color determinationOrd ered By: Boaz Huang on 05-14-2025 Color (U) Yellow Yellow [facility] Urine glucose detectionOrder ed By: Boaz Huang on 05-14-2025 Glucose Ql (U) Normal mg/dl Normal [facility] Urine leukocyte esterase det ection by dipstickOrdered By: Boaz Huang on 05-14-2025 Leukocyte esterase Test strip Ql (U) 25 /ul High Negative [facility] Urine pHOrdered By: Boaz Huang on 05-14-2025 pH (U) 6.0 [pH] 5.0 - 8.0 [facility] Urine sediment bacteria coun t by microscopy (number/high power field)Ordered By: Boaz Huang on 05-14-2025 Bacteria LM.HPF (Urine sed) [#/Area] 0 /[HPF] None Seen [facility] Urine specific gravity measu rementOrdered By: Boaz Huang on 05-14-2025 Specific gravity (U) [Rel density] 1.020 1.002-1.030 [facility] Urine urobilinogen measureme ntOrdered By: Boaz Huang on 05-14-2025 Urobilinogen Ql (U) Normal mg/dl Normal [facility] White blood cell (WBC) count Ordered By: Boaz Huang on 05-14-2025 WBC (Bld) [#/Vol] 11.8 10*3/uL High 4.4-11.0 [facility] White blood cell countOrdere d By: Boaz Reina on 05-14-2025 White blood cell count 5-10 SEEN /hpf 0-5 [facility] Urgent Care Visit Reporton 0 05-07-2025 Urgent Care Visit Report [facility] [address], [address] [place] [address] OFFICE VISIT Date of Service: 05/07/25 MR#: [id number] Acct: [id number] Name: rios delatorre Rep #: [id number] : 1975 Provider: KATERINA Velez Age/Sex: 49/M Location: [facility] Status: Signed Intake Vital Signs 05/07/25 08:26 BP 162/92 H Blood Pressure Location Lt brachial Position Sitting Respiration 18 Pulse 74 Pulse Source NIBP Temp 98.4 F Temp Source Oral Pulse Oximetry (%) 98 Oxygen Delivery Method room air Intake Visit Reasons: CONCERN FOR TOOTH INFECTION Chief Complaint: left lower tooth Extension Service Advisor Required: No Is patient in pain?: Yes [...] tabs 0RF Clinical Quality Measures Falls Risk Screening/Assistiv e Devices Have you fallen in the past year?: No 05/07/25 0851 Date Albert Olivares Signature: Date (if applicable) CC: Normal [facility] Urgent Care Visit Reporton 0 01-21-2025 Urgent Care Visit Report [facility] [address], [address] [place] [address] OFFICE VISIT Date of Service: 01/21/25 MR#: [id number] Acct: [id number] Name: rios delatorre Rep #: [id number] : 1975 Provider: KATERINA Howell Age/Sex: 49/M Location: [facility] Status: Signed Intake Vital Signs 01/21/25 12:04 BP 148/82 H Blood Pressure Location Rt brachial Position Sitting Respiration 16 Pulse 67 Pulse Source NIBP Temp 98.2 F Temp Source Oral Pulse Oximetry (%) 97 Oxygen Delivery Method room air Intake Visit Reasons: ear pain Chief Complaint: left ear pain, plugged, swelling Extension Service Advisor Required: No Is patient in pain?: Yes [...] hearing change/loss. No other associated symptoms or alleviating/aggrav ating factors. ROS Const Constitutional: No other (6 system ROS completed with pertinent findings in the HPI otherwise normal.) Exam Const General: cooperative and well developed [facility] Head: normal to inspection and atraumatic Ears: [...] the above. Clinical Quality Measures Falls Risk Screening/Assistiv e Devices Have you fallen in the past year?: No 01/21/25 1209 Date Ortiz BORGES Cosigner Signature: Date (if applicable) CC: Normal [facility] Urgent Care Visit Reporton 1 Urgent Care Visit Report [facility] [address], [address] [place] [address] OFFICE VISIT Date of Service: 09/03/24 MR#: [id number] Acct: [id number] Name: rios delatorre Rep #: [id number] : 1975 Provider: KATERINA Howell Age/Sex: 48/M Location: [facility] Status: Signed Intake Intake Visit Reasons: RENEWAL [...] Cosigner Signature: Date (if applicable) CC: Normal [facility] PATELLA LEFTon 08-01-2023 PATELLA LEFT EXAM: PATELLA [...] not see any acute traumatic finding. Normal [facility] CHLAM GONORRHEA and TRICH NA Aon 06-10-2023 [id number] Negative Normal Negative [facility] Comment on above: Performed By: #### [facility] #### Performed for [facility] [address] [place], [place] [address] C. trachomatis rRNA JORGE LUIS+probe Ql (Unsp spec) Negative Normal Negative [facility] Comment on above: Performed By: #### [facility] #### Performed for [facility] [address] [place], [place] [address] N. gonorrhoeae rRNA JORGE LUIS+probe Ql (Unsp spec) Negative Normal Negative [facility] Comment on above: Performed By: #### [facility] #### Performed for [facility] [address] [place], [place] [address] CT Ankle Right Without Contr ana laura 09-24-[address] evidence of acute [...] in the [place]. Workstation ID: [id number] [facility] EXAMINATION: CT ANKLE RIGHT WITHOUT CONTRAST [...] ganglion cyst formation in the posterior ankle. [facility] Interface, Rad In Zachary Suazoq - [...] in the [place]ar [place]. Workstation ID: [id number] [facility] CT ANKLE RIGHT WITHOUT CONTR Riggins 09-22-2020 CT ANKLE RIGHT WITHOUT CONTRAST EXAMINATION: [...] FriSep 24, 2020 6:39:49 PM EST Normal [facility] Comment on above: Order Comment: Pt/fa x Injury/Trauma or Illness?:Injury/Trauma How long have you had these symptoms (acute/chronic)?:Acute Reason for exam?:stepped in hole, swelling pain medial and lateral Type of Exam?:Initial Mechanism of injury?:stepped in hole CBCon 09-16-2020 ABSOLUTE BAS 0.1 10*3/uL Normal 0.0-0.[address] [facility] ABSOLUTE EOS 0.40 10*3/uL Normal 0.0-0.7 [facility] ABSOLUTE NEUTROPHIL COUNT 5.0 10*3/uL Normal 1.4-6.5 [facility] Basophils/100 WBC (Bld) 0.5 % Normal 0.0-2.0 [facility] DTYPE AUTO DIFF Normal [facility] Eosinophils/100 WBC (Bld) 4.1 % Normal 0.0-11.0 [facility] Lymphocytes (Bld) [#/Vol] 3.70 10*3/uL High 1.2-3.4 [facility] Lymphocytes/100 WBC (Bld) 38.5 % Normal 20.0-55.0 [facility] Monocytes (Bld) [#/Vol] 0.5 10*3/uL Normal 0.0-0.7 [facility] Monocytes/100 WBC (Bld) 5.4 % Normal 0.0-10.0 [facility] Neutrophils/100 WBC (Bld) 51.5 % Normal 37.0-75.0 [facility] Erythrocyte distribution width (RBC) [Ratio] 13.8 % Normal 11.5-14.5 [facility] [place] Hematocrit (Bld) [Volume fraction] 46.5 % Normal 42.0-52.0 [facility] Hemoglobin (Bld) [Mass/Vol] 15.9 g/dL Normal 14.0-18.0 [facility] MCH (RBC) [Entitic mass] 28.9 pg Normal 26.0-35.0 [facility] MCHC (RBC) [Mass/Vol] 34.2 g/dL Normal 27.0-37.0 [facility] MCV (RBC) [Entitic vol] 84.4 fL Normal 80.0-100.0 [facility] Platelet mean volume (Bld) [Entitic vol] 9.5 fL Normal 7.4-11.0 [facility] [place] Platelets (Bld) [#/Vol] 247 10*3/uL Normal 130.0-400.0 [facility] RBC (Bld) [#/Vol] 5.51 10*6/uL Normal 4.0-6.1 [facility] WBC (Bld) [#/Vol] 9.7 10*3/uL Normal 3.6-11.0 [facility] CMP FASTINGon 09-16-2020 A:G RATIO 1.2 RATIO Low 1.3-2.2 [facility] Albumin [Mass/Vol] 4.4 G/dl Normal 3.5-5.0 [facility] ALP [Catalytic activity/Vol] 98 U/L Normal 38-126 [facility] ALT [Catalytic activity/Vol] 29 U/L Normal <50 [facility] AST [Catalytic activity/Vol] 25 U/L Normal 17-59 [facility] Bilirubin [Mass/Vol] 0.6 mg/dL Normal 0.2-1.3 [facility] Calcium [Mass/Vol] 9.7 mg/dL Normal 8.4-10.2 [facility] Chloride [Moles/Vol] 102 mmol/L Normal 98-107 [facility] Comment on above: Result Comment: Enma delgado note: Triglyceride levels of 600mg/dL or higher may positively bias chloride results by approximately 2.1 mmol CO2 [Moles/Vol] 30 mmol/L Normal 22-30 [facility] Creatinine [Mass/Vol] 0.86 mg/dL Normal 0.7-1.2 [facility] EST. GFR, >60 Normal [facility] EST. GFR,Non >60 Normal [facility] GFR/1.73 sq M predicted among non-blacks MDRD (S/P/Bld) [Vol rate/Area] Average GFR for 40-49 years old = 99. Normal [facility] Comment on above: Result Comment: Assistant Professor Of Philosophy annia Kidney disease, GFR = <60. Kidney failure, GFR = <15. The GFR estimate is not adjusted for extreme body surface area or acute process, nor has it been validated for women or ethnic groups other than and . Glucose [Mass/Vol] 106 mg/dL High 70-100 [facility] Comment on above: Result Comment: NORMAL <100 mg/dL PREDIABETES 101-126 mg/dL DIABETES 126 mg/dL or higher Potassium [Moles/Vol] 4.4 mmol/L Normal 3.5-5.1 [facility] Protein [Mass/Vol] 8.2 g/dL Normal 6.3-8.2 [facility] Sodium [Moles/Vol] 139 mmol/L Normal 137-145 [facility] Urea nitrogen [Mass/Vol] 13 mg/dL Normal 7-20 [facility] LIPID PROFILEon 09-16-2020 Cholesterol [Mass/Vol] 209 mg/dL High 120-200 [facility] Cholesterol in HDL [Mass/Vol] 41 mg/dL Normal 26-63 [facility] Cholesterol in LDL [Mass/Vol] 142 mg/dL Normal [facility] Cholesterol in VLDL [Mass/Vol] 26 mg/dL High 5.0-25 [facility] Cholesterol.total/Cholest delbert in HDL [Mass ratio] 5.10 {ratio} Normal [facility] Comment on above: Result Comment: RISK TOTAL/HDL RATIO MEN WOMEN 1/2 AVERAGE 3.43 3.27 AVERAGE 4.97 4.44 2X AVERAGE 9.55 7.05 3X AVERAGE 23.99 11.04 Triglyceride [Mass/Vol] 128 mg/dL Normal 0-150 [facility] TSHon 09-16-2020 TSH Qn 1.980 uIU/ML Normal 0.46-4.68 [facility] [place] XR ANKLE RIGHT 3+ VIEWSon XR ANKLE [...] by: Marlene Santacruz MD 08/27/2020 9:11 AM [employer] [facility] IMPRESSION: There is soft tissue swelling without acute bony abnormality. Electronically signed by: Marlene Santacruz MD 08/27/2020 9:11 AM [facility] [employer] EXAM: XR Right Ankle, 3 Views CLINICAL HISTORY: ankle pain and swelling TECHNIQUE: Frontal, lateral and oblique views of the right ankle. COMPARISON: No relevant prior studies available. FINDINGS: Limitations: None. Bones/joints: No acute fracture or osseous destruction. Normal alignment. Soft tissues: Diffuse periarticular soft tissue swelling noted with associated lateral hematoma. [place] [employer] User, Interfaces - 08/27/2020 10:13 AM EDT [...] by: Marlene Santacruz MD 08/27/2020 9:11 AM [facility] Vital Signs Date Time Vital Sign Value Performing Clinician Cholo henley 05-14-2025 16:08-0400 Body temperature 98.1 [degF] Dr. Boaz Huang DO Work Phone: [facility] 05-14-2025 16:08-0400 Diastolic blood pressure 56 mm[Hg] Dr. Boaz Elliott Work Phone: [facility] 05-14-2025 16:08-0400 Heart rate 78 /min Dr. Boaz Huang DO Work Phone: [facility] 05-14-2025 16:08-0400 Respiratory rate 16 /min Dr. Boaz Huang DO Work Phone: [facility] 05-14-2025 16:08-0400 SaO2% (BldA) [Mass fraction] 100 % Dr. Boaz Elliott Work Phone: [facility] 05-14-2025 16:08-0400 Systolic blood pressure 125 mm[Hg] Dr. Boaz Elliott Work Phone: [facility] 05-14-2025 13:33-0400 Body height 182.[address] Boaz Elliott Work Phone: [facility] 05-14-2025 13:33-0400 Body mass index (BMI) [Ratio] 45.1 kg/m2 Dr. Boaz Elliott Work Phone: [facility] 05-14-2025 13:33-0400 Body weight 151.[address] Boaz Elliott Work Phone: [facility] 05-07-2025 08:26-0400 Body temperature 98.4 [degF] Ortiz Kenny PA Work Phone: [facility] 05-07-2025 08:26-0400 Diastolic blood pressure 92 mm[Hg] Ortiz Kenny PA Work Phone: [facility] 05-07-2025 08:26-0400 Heart rate 74 /min Ortiz Kenny PA Work Phone: [facility] 05-07-2025 08:26-0400 Respiratory rate 18 /min Ortiz Kenny PA Work Phone: [facility] 05-07-2025 08:26-0400 SaO2% (BldA) [Mass fraction] 98 % Ortiz Kenny PA Work Phone: [facility] 05-07-2025 08:26-0400 Systolic blood pressure 162 mm[Hg] Ortiz Kenny PA Work Phone: [facility] 01-21-2025 12:04-0500 Body temperature 98.2 [degF] Ortiz Kenny PA Work Phone: [facility] 01-21-2025 12:04-0500 Diastolic blood pressure 82 mm[Hg] Ortiz Kenny PA Work Phone: [facility] 01-21-2025 12:04-0500 Heart rate 67 /min Ortizrosalino Kenny PA Work Phone: [facility] 01-21-2025 12:04-0500 Respiratory rate 16 /min Ortiz Kenny PA Work Phone: [facility] 01-21-2025 12:04-0500 SaO2% (BldA) [Mass fraction] 97 % Ortiz Kenny PA Work Phone: [facility] 01-21-2025 12:04-0500 Systolic blood pressure 148 mm[Hg] Ortiz Kenny PA Work Phone: [facility] 04-10-2021 08:43-0400 Body mass index (BMI) [Ratio] 48.15 kg/m2 Cecile Hopkins RESPIRATORY CARE ASSISTANT-CONTACT CENTER ASSISTANT Work Phone: [facility] 04-10-2021 08:43-0400 Body weight 161.03 kg Cecile Hopkins RESPIRATORY CARE ASSISTANT-CONTACT CENTER ASSISTANT Work Phone: [facility] 04-10-2021 08:43-0400 Diastolic blood pressure 80 mm[Hg] Cecile Hopkins RESPIRATORY CARE ASSISTANT-CONTACT CENTER ASSISTANT Work Phone: [facility] 04-10-2021 08:43-0400 Heart rate 80 /min Cecile Hopkins RESPIRATORY CARE ASSISTANT-CONTACT CENTER ASSISTANT Work Phone: [facility] 04-10-2021 08:43-0400 SaO2% (BldA) [Mass fraction] 97 % Cecilereno Hopkins RESPIRATORY CARE ASSISTANT-CONTACT CENTER ASSISTANT Work Phone: [facility] 04-10-2021 08:43-0400 Systolic blood pressure 132 mm[Hg] Cecile Hopknis RESPIRATORY CARE ASSISTANT-CONTACT CENTER ASSISTANT Work Phone: [facility] 09-15-2020 13:40-0400 BMI (Body Mass Index) 46.52 kg/m2 [facility] 09-15-2020 13:40-0400 Body weight 155.58 kg [facility] 09-15-2020 13:40-0400 BP Diastolic 90 mm[Hg] [facility] 09-15-2020 13:40-0400 BP Systolic 144 mm[Hg] [facility] 09-15-2020 13:40-0400 Height 182.9 cm [facility] 09-15-2020 13:40-0400 Pulse (Heart Rate) 80 /min [facility] 09-15-2020 13:40-0400 Pulse Oximetry 97 % [facility] 08-27-2020 09:51-0400 BMI (Body Mass Index) 46.79 kg/m2 [facility] 08-27-2020 09:51-0400 Body weight 156.49 kg [facility] 08-27-2020 09:51-0400 Height 182.9 cm [facility] 08-27-2020 09:50-0400 Body Temperature 98.6 [degF] [facility] 08-27-2020 09:50-0400 BP Diastolic 77 mm[Hg] [facility] 08-27-2020 09:50-0400 BP Systolic 172 mm[Hg] [facility] 08-27-2020 09:50-0400 Pulse (Heart Rate) 81 /min [facility] 08-27-2020 09:50-0400 Pulse Oximetry 96 % [facility] 08-27-2020 09:50-0400 Respiratory Rate 18 /min [facility] Encounters Encounter Date Encounter Type Care Provider Facility Start: 05-14-2025 End: 05-14-2025 Emergency department patient visit Dr. Boaz Huang DO Work Phone: -Emergency Department Work Phone: Start: 05-07-2025 End: 05-07-2025 Patient encounter procedure Albert Rodarte [facility] Work Phone: Start: 05-07-2025 End: 05-07-2025 ambulatory Albert Lyonetler [facility] Work Phone: Start: 01-21-2025 End: 01-21-2025 Patient encounter procedure Ortiz Kenny PA [facility] Work Phone: Start: 01-21-2025 End: 01-21-2025 ambulatory Ortiz BORGES Facility:[facility] Start: 09-03-2024 End: 09-03-2024 ambulatory Ortiz BORGES Facility:[facility] Start: 08-01-2023 End: 08-02-2023 ambulatory SOL BROWN Facility:[facility] Start: 06-07-2023 End: 06-08-[address] WILFRED BYRD DO Facility:[facility] Start: 04-10-2021 End: 04-10-2021 Office outpatient visit 15 minutes Cecile Hopkins RESPIRATORY CARE ASSISTANT-CONTACT CENTER ASSISTANT Work Phone: [facility] Comment on above: body mass index of 4 0.0-49.9 (Primary Dx); Essential hypertension; Preventative health care; Screening for prostate cancer Start: 04-10-2021 End: 04-10-2021 Patient encounter status Cecile Hopkins RESPIRATORY CARE ASSISTANT-CONTACT CENTER ASSISTANT Work Phone: [facility] Start: 09-22-2020 End: 09-23-2020 Patient encounter procedure DENISE TORRES [facility] Start: 09-22-2020 End: 09-22-2020 Subsequent hospital visit by physician Denise Torres Work Phone: [facility] CT Scan Comment on above: Sprain of anterior t alofibular ligament of right ankle, initial encounter Start: 09-15-2020 End: 09-15-2020 Office outpatient new 30 minutes Cecile Hopkins Work Phone: [facility] Comment on above: Essential hypertensi on (Primary Dx); Screening for thyroid disorder Start: 08-27-2020 End: 08-27-2020 [facility] Start: 08-27-2020 End: 08-27-2020 Emergency department patient visit Sean Jiang Work Phone: [facility] Emergency Medicine Procedures Date Procedure Procedure Detail Performing Clinician Start: 05-14-[address] Boaz Elliott Work Phone: Start: 05-14-2025 Urnls dip stick/tabl et reagent auto microscopy Dr. Boaz Elliott Work Phone: Start: 09-22-2020 Ct lower extremity w /o contrast material Denise Torres Work Phone: Start: 09-16-2020 Lipid 1996 panel - S lukas or Plasma Cecile Hopkins RESPIRATORY CARE ASSISTANT-CONTACT CENTER ASSISTANT Work Phone: Start: 08-27-2020 X-ray of right ankle Ba brunilda Jiang Work Phone: Plan of Treatment Date Care Activity Detail Author Start: 09-16-2025 Fasting lipid profile LIPID SCREENIN G [facility] Start: 08-08-2025 Tetanus vaccination TETANUS [facility] Start: 05-14-2025 End: 05-14-2025 [facility] Start: 10-12-2021 End: 10-12-2021 Patient encounter procedure 10/12/2021 Office Visit Family Medicine Cecile Hopkins, RESPIRATORY CARE ASSISTANT-CONTACT CENTER ASSISTANT [address] [place] [address] [facility] Start: 09-16-2021 Potassium [Moles/vol ume] in Serum or Plasma POTASSIUM [facility] Start: 08-27-2021 End: 04-10-2022 Complete blood count with white cell differential, automated CBC, EDIF, PLATELET Lab Routine Essential hypertension Expected: 08/27/2021, Expires: 04/10/2022 [facility] Comment on above: Expected: 08/27/2021 , Expires: 04/10/2022 Start: 08-27-2021 End: 04-10-2022 Comprehensive metabolic 2000 panel - Serum or Plasma COMPREHENSIVE METABOLIC PANEL Lab Routine Essential hypertension Expected: 08/27/2021, Expires: 04/10/2022 [facility] Comment on above: Expected: 08/27/2021 , Expires: 04/10/2022 Start: 08-27-2021 End: 04-10-2022 LIPID PANEL W CALCULATED LDL LIPID PANEL W CALCULATED LDL Lab Routine Essential hypertension Expected: 08/27/2021, Expires: 04/10/2022 [facility] Comment on above: Expected: 08/27/2021 , Expires: 04/10/2022 Start: 08-27-2021 End: 04-10-2022 PSA screening PSA, SCREENING Lab Routine Screening for prostate cancer Expected: 08/27/2021, Expires: 04/10/2022 [facility] Comment on above: Expected: 08/27/2021 , Expires: 04/10/2022 Start: 12-15-2020 End: 12-15-2020 Office Visit 12/15/2020 Office Visit Family Medicine Cecile Hopkins, RESPIRATORY CARE ASSISTANT-CONTACT CENTER ASSISTANT [address] [place] [address] [facility] Start: 09-15-2020 End: 09-15-2021 Complete blood count with white cell differential, automated CBC, EDIF, PLATELET Lab Routine Essential hypertension Expected: 09/15/2020, Expires: 09/15/2021 [facility] Comment on above: Expected: 09/15/2020 , Expires: 09/15/2021 Start: 09-15-2020 End: 09-15-2021 Comprehensive metabolic 2000 panel COMPREHENSIVE METABOLIC PANEL Lab Routine Essential hypertension Expected: 09/15/2020, Expires: 09/15/2021 [facility] Comment on above: Expected: 09/15/2020 , Expires: 09/15/2021 Start: 09-15-2020 End: 09-15-2021 LIPID PANEL W CALCULATED LDL LIPID PANEL W CALCULATED LDL Lab Routine Essential hypertension Expected: 09/15/2020, Expires: 09/15/2021 [facility] Comment on above: Expected: 09/15/2020 , Expires: 09/15/2021 Start: 09-15-2020 End: 09-15-2020 Office Visit 09/15/2020 Office Visit Family Medicine SandeepCecile, RESPIRATORY CARE ASSISTANT-CONTACT CENTER ASSISTANT [address] [place] [address] [facility] Start: 09-15-2020 End: 09-15-2021 TSH Qn TSH Lab Routine Essential hypertension Screening for thyroid disorder Expected: 09/15/2020, Expires: 09/15/2021 [facility] Comment on above: Expected: 09/15/2020 , Expires: 09/15/2021 Start: 07-25-2020 Influenza vaccination INFLUENZA VACC INE (#1) [facility] Start: 07-25-2020 Influenza vaccinatio n given Sequential Influenza Vaccine (#1) [facility] Start: 02-14-2019 Potassium [Moles/Vol] POTASSIUM A [facility] Start: 2014 Fasting lipid profile LIPID SCREENIN G [facility] Start: 1993 Third diphtheria, tetanus and acellular pertussis (DTaP) vaccination TDAP (ADULT) [facility] Start: 1992 Hepatitis C antibody , confirmatory test Hepatitis C Screening [facility] Start: 1992 Tetanus vaccination TETANUS [facility] Start: 1989 HIV screening HIV Screening [facility] Start: 1987 HIV screening HIV SCREENING DISCUSSION [facility] Start: 1986 COVID-19 VACCINE (1) COVID-19 VACCIN E (1) [facility] Start: 1977 History and physical examination, annual for health maintenance Wellness Visit [facility] Start: 1974 Prostate specific antigen measurement PSA Level [facility] Start: 1974 Tetanus vaccination Tetanus: Every 1 0yrs [facility] Patient Education Urinary Tract Infections in Men ED Urinary Retention, Male [facility] Work Phone: Patient referral [facility] Work Phone: Urine culture [facility] Payers Date Payer Category Payer Self-pay 2020 Unknown [employer] PENDING [employer] PENDING [facility] [id number] 2020-Present [id number] 2020 Unknown [id number] 2020 Worker's Compensation [id number] 1975 Unknown [id number] 1975 Unknown [id number] 1975 Unknown [id number] 1975 Unknown [id number] Unknown [id number] Unknown [id number] Unknown 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 [id number] Effective for all dates Social History Date Type Detail Facility Start: 08-27-2020 End: 04-10-2021 Tobacco smoking status NHIS Never smoker [facility] Start: 08-27-2020 End: 04-10-2021 Tobacco use and exposure Former user [facility] Start: 08-27-2020 End: 04-10-2021 Alcohol intake Current non-drinker of alcohol (finding) [facility] Start: 1975 Sex Assigned At Not on file [facility] Exposure to SARS-CoV -2 (event) Not sure [facility] End: 09-15-2018 History of tobacco use User of smokeless tobacco [facility] Start: 05-14-2025 Tobacco smoking stat us ARIS Unknown if ever smoked [facility] Start: 1975 Sex Assigned At Male [facility] Evaluation note 01-21-2025 Note Date & Type Note Facility 01-21-2025 Evaluation note Diagnosis Onset Date Resolution Dental infection acute January 21, 2025 11:56am [facility] Work Phone: Evaluation note 01-21-2025 Note Date & Type Note Facility 01-21-2025 Evaluation note Diagnosis Onset Date Resolution Dental infection acute January 21, 2025 11:56am Dental infection acute April 8:11am Elevated BP without diagnosis of hypertension acute May 07, 2025 8:11am [facility] Work Phone: Note 04-10-2021 Assessment & Plan Note - Cecile Hopkins APRN-CNP - 04/10/2021 8:59 AM EDTAssessment & Plan Note - Cecile Hopkins APRN-CNP - 04/10/2021 8:56 AM EDT Note Date & Type Note Facility 04-10-2021 Miscellaneous Notes Associated Problem(s): Preventative health care [facility]: Call Friday-Friday 8 AM to 4:30 PM to schedule an appointment time. [address] [place] [place] [address] [facility] [address] [place], [place] [facility] [address] [place], [place] [facility] [address] Associated Problem(s): body mass index [...] increase blood pressure. documented in this encounter [facility] History of Present illness Narrative 04-10-2021 Cecile Hopkins APRN-CNP - 04/10/2021 8:45 AM Donna Humphries - 04/10/2021 8:45 AM EDT Note Date & Type Note Facility 04-10-2021 History of Presen t illness Narrative ((((Portions of this note utilized [employer] dictation software, please excuse any typographical or [...] EDIF, PLATELET LIPID PANEL W CALCULATED LDL health care [facility]: Call Friday-Friday 8 AM to 4:30 PM to schedule an appointment time. [address] [place] [address] [facility] [address], [place], [place] [facility] [address] [facility] [place] [facility] [address] Other Visit Diagnoses Screening for [...] and sleep disturbance. documented in this encounter [employer] Instructions 04-10-2021 Patient Instructions Note Date [...] PANEL W CALCULATED LDL Preventative health care [facility]: Call Friday-Friday 8 AM to 4:30 PM to schedule an appointment time. [address] [place] [address] [facility] [address], [place], [place] [facility] [address] [place], [place] [facility] [address] Other Visit Diagnoses Screening for [...] proceed with plan. documented in this encounter [facility] Evaluation note Note Date & Type Note Facility Evaluation note Diagnosis body mass index of 40.0-49.9- Primary Essential hypertension Unspecified essential hypertension Preventative health care Routine general medical examination at a health care facility Screening for prostate cancer Special screening for malignant neoplasm of prostate documented in this encounter [facility] Hospital Discharge instructions Note Date & Type Note Facility Hospital Discharge instructions Additional Instructions Urine retention that improved in the ED after attempted Gaming catheter. Urine with signs of infection culture pending labs are normal. Take and finish antibiotic as prescribed. Take Flomax daily. Follow-up with urology. [facility] Work Phone: Reason for referral (narrative) Note Date & Type Note Facility Reason for referral (narrative) No reason for referral information available [facility] Work Phone: Discharge Instructions * Attachments The following attachments cannot be sent through Care Everywhere. * Ankle Sprain (Korean) documented in this encounter Assessments Diagnosis Sprain of right ankle, unspecified ligament, initial encounter- Primary Diagnosis Essential hypertension- Primary Unspecified essential hypertension Screening for thyroid disorder Diagnosis Sprain of anterior talofibular ligament of right ankle, initial encounter Instructions * Patient Instructions* Cecile Hopkins, RESPIRATORY CARE ASSISTANT-CONTACT CENTER ASSISTANT - 09/15/2020 2:00 PM EDT Problem List [...] History of Present Illness * Cecile Hopkins APRN-CONTACT CENTER ASSISTANT - 09/15/2020 2:00 PM EDT ((((Portions of this note utilized [employer] dictation software, please excuse any typographical or grammatical errors.)))) Rios Delatorre is a 44 y.o. male 1975 who comes in with the following complaint(s): Chief Complaint Patient presents with [facility] Hypertension HPI: Dr. Rodriguez in [place]. Rios is a new patient here to establish [facility] and would like to discuss his BP. 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 No May 14, 2025 3:41pm Reason for Referral Status Reason Specialty Diagnoses / Procedures Referred By Contact Referred To Contact Pending Review Radiology Diagnoses Sprain of anterior talofibular ligament of right ankle, initial encounter Procedures CT Ankle Right Without Contrast Denise Torres MD [address] [place] [id number] Chief Complaint and Reason for Visit Chief Complaint Admit Date ear pain January 21, 2025 11:56am CONCERN FOR TOOTH INFECTION May 07 8:11am Reason for Visit Admit Date Dental infection January 21, 2025 11:56am Chief Complaint Admit Date ear pain January 21, 2025 11:56am CONCERN FOR TOOTH INFECTION May 07 8:11am cant pee May 14, 2025 1:32 pm Reason for Visit Admit Date Dental infection January 21, 2025 11:56am Dental infection May 07, 2025 8:11 am Elevated BP without diagnosis of hyperte nsion May 07, 2025 8:11am Additional Source Comments Reason for Visit (unrecogniz [...] Ankle Right Without Contrast Denise Torres MD [address] [place] [address] [place] [id number] Reason Comments Follow-up Hypertension Eva Brody RN - 08/27/2020 10:54 AM Eva eRcio RN - 08/27/2020 10:43 AM Sean Kelly [...] Delatorre is a 44-year-old white gentleman, 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 He is coming today because of increasing pain, swelling and ecchymosis. No other injury reported Past Medical History: Diagnosis Date NE (myocardial infarction) No past surgical history on [...] encounter Assessment & Plan Note - Cecile Hopkins, RESPIRATORY CARE ASSISTANT-CONTACT CENTER ASSISTANT - 09/15/2020 2:17 PM EDT Miscellaneous Notes [...] DATE CREATED AUTHOR AUTHOR'S ORGANIZ ATION 11/01/2020 [facility] DATE CREATED AUTHOR AUTHOR'S ORGANIZ ATION 05/01/2021 [facility] DATE CREATED AUTHOR AUTHOR'S ORGANIZ ATION 08/06/2023 [facility] DATE CREATED AUTHOR AUTHOR'S ORGANIZ ATION 05/09/2025 [facility] Care Teams (unrecognized sec tion and content) Team Status: Inactive Member Role Status Dates Ortiz BORGES PA Attending Provider Active Sta rt: January 21, 2025 End: January 21, 2025 Team Status: Inactive Member Role Status Dates KATERINA Velez Attending Provider Active Start: May 07, 2025 End: May 07, 2025 Team Status: Active Member Role Status Dates No Primary Care Physician Primary Care Provider Active Team Status: Inactive Member Role Status Dates Dr. Boaz Huang DO Emergency Provider Active Start : May 14, 2025 End: May 14, 2025 No Primary Care Physician Primary Care Provider Active Start: May 14, 2025 End: May 14, 2025 Goals (unrecognized section and content) Goals may be documented in a n alternate sectionGoals may be documented in an alternate section FOR RECORDS PERTAINING TO PATIENTS [...] BE BASED ON THE PRIMARY CLINICAL RECORDS. [facility] provides no warranty or guarantee of the accuracy or completeness of information in this document.
--- NOTE | 2025-05-14 22:22 | ED.RN ---
Pt states he's unable to urinate, it's just leaking out, complains of bladder distention. Pt further states I only have a pinpoint hole to pee out of and I think it's closed off. Pt states [address] to [address] marie unsuccessfully when here earlier today. Pt bladder scanned for 497 volume. This RN attempted to place a 12fr and 10fr marie unsuccessfully but able to advance a female speci cath into penis. After speci cath removed this RN able to partially advance a 10fr into penis. Urethral opening now appears open again. Pt able to stand and urinate 500ml without difficulty.
--- NOTE | 2025-05-14 22:32 | EDS_ITS ---
HPI History of Present Illness Chief Complaint: Complaint Narrative Narrative: 49-year-old male who denies significant past medical history was seen in the emergency department earlier today. He states he had urinary retention at that time. Attempt was made to insert a Gaming catheter, but they were unable to do so. He ended up being able to urinate and his bladder was drained enough where he was sent home with antibiotics, and told to follow-up with urology. He states that approximately an hour later, he started feeling pressure in his bladder again. Prior to being seen, RN did bladder scan and he had approximately over 450 mL of urine in his bladder on the scan. She had stated that the meatus was pinhole, but had inserted a larger catheter, the patient was able to void 500 mL. He states he feels improved and denies any fevers or chills, no longer has suprapubic bladder pressure. PFSH PFSH Home Medications ?Medication ?Instructions ?Recorded ?Last Taken ?Type amoxicillin 875 mg-potassium 1 tab PO BID 10 days #20 tabs 05/07/25 05/14/25 Rx clavulanate 125 mg tablet cefdinir 300 mg capsule 300 mg PO Q12H #14 caps 04/25 12/18 Unknown Rx tamsulosin 0.4 mg capsule (Flomax) 0.4 mg PO DAILY #30 caps 05/14/25 Unknown Rx Allergy/AdvReac Type Severity Reaction Status Date / Time No Known Allergies Allergy Verified 05/14/25 20:57 Social History Smoking Status: Unknown if ever smoked ROS ROS ED ROS Narrative Review of systems positive for urinary retention, suprapubic pressure. No fevers or chills, no nausea or vomiting. Positive inability to urinate after being seen in emergency department earlier today. EXAM Physical Exam Narrative Exam Narrative: Upon my examination after voiding, afebrile, vital signs noted. Nontoxic- appearing. Cardiovascular examination of is a regular rate and rhythm. Lungs are clear to auscultation bilaterally. Abdomen is soft, nontender, with umbilical hernia that is reducible without erythema. No guarding or rebound. Positive bowel sounds. Neurological examination nonfocal, nonlateralizing. Const Vital Signs: 05/14/25 20:57 05/14/25 22:39 Temperature 97.9 F 97.8 F Temperature Source Temporal Pulse Rate 91 72 Respiratory Rate 18 18 Blood Pressure 147/90 H 154/85 H Blood Pressure Mean 109 108 Pulse Ox 95 97 Oxygen Delivery Method Room Air MDM MDM MDM Narrative Medical decision making narrative: I do not feel that differential diagnosis is applicable in this case. Patient has already voided. He prefers that bladder scan be performed again just to make sure he is not in retention. Repeat bladder scan showed 77 mL according to RN. I feel he can be discharged to follow-up with urology, and return with inability to urinate. He will take his antibiotics and Flomax as previously directed. Patient is motivated for discharge. Disposition is discharged home in stable condition. Discharge Plan Triage Chief Complaint: Complaint ED Provider: Regan Pavon Dx/Rx/DC Orders Clinical Impression: Acute retention of urine, Abnormality of urethral meatus Instructions: ED Urinary Retention, Male Prescriptions: No Action amoxicillin-pot clavulanate 875-125 mg tablet 1 tab PO BID 10 Days Qty: 20 0RF cefdinir 300 mg capsule 300 mg PO Q12H Qty: 14 0RF tamsulosin [Flomax] 0.4 mg capsule 0.4 mg PO DAILY Qty: 30 0RF Primary Care Provider: Care Physician,No Primary Referrals: Care Physician,No Primary [Primary Care Provider] - Activity Restrictions/Additional Instructions: Follow-up with Dr. Girard as previously directed. Return with inability to urinate, new or worsening symptoms. Take your antibiotic as previously directed as well. Print Language: Iraqi Disposition Disposition: Home, Self Care Discharge Date/Time: 05/14/25 22:52
[2025-05-14 22:39] VITALS: BP 154/85; PULSE 72; RESP 18; TEMP 36.6; O2SAT 97
== END 2025-05-14 22:52 | disposition home or self-care (01) ==
PROVIDERS: Emergency Provider Emergency Medicine; Visit Provider Emergency Medicine
DX: R33.9 Retention of urine, unspecified (principal); N36.8 Other specified disorders of urethra
CPT/HCPCS: 99282

== ENCOUNTER 2025-08-21 03:14 | Emergency (ER) | payer SELFPAY ==
[2025-08-21 03:16] VITALS: BP 164/91; PULSE 88; RESP 16; TEMP 36.9; O2SAT 98; BMI 41.3
--- NOTE | 2025-08-21 03:51 | EX.ED.GUMALE ---
HPI History of Present Illness Chief Complaint: Complaint Informant: patient Narrative Narrative: Patient is a 49-year-old male presenting with urinary retention. - Reports difficulty urinating since 1699 yesterday. - Initially able to urinate, but after a nap around 1999, experienced minimal urine output. (about 7 hrs ago) - This morning, unable to urinate at all. - Similar episode last summer, treated with attempted catheterization and started on Flomax, which resolved the issue until now. - Denies recent urologic surgery. - Recent attempt at catheterization by nursing staff here this am prior to my exam was initially unsuccessful, but patient was able to urinate afterward, and now feels much better. - Describes previous episodes where urine stream was so weak it would shoot upwards towards his abdomen. States in the past the issue has been at the urethral meatus. - Has an upcoming appointment with a urologist but has been delayed due to scheduling issues. [facility] Medical History Urinary retention Home Medications ?Medication ?Instructions ?Recorded ?Last Taken ?Type tamsulosin 0.4 mg capsule (Flomax) 0.4 mg PO DAILY #30 caps 05/14/25 Unknown Rx Allergy/AdvReac Type Severity Reaction Status Date / Time No Known Allergies Allergy Verified 08/21/25 03:15 Social History Smoking Status: Never smoker ROS [facility] ED Constitutional Constitutional ED: Denies chills or fever(s) Eyes Eyes: Denies change in vision or diplopia ENT ENT ED: Denies rhinorrhea or sore throat Cardiovascular Cardiovascular: Denies chest pain or palpitations Respiratory/Chest Respiratory/Chest: Denies cough or dyspnea Gastrointestinal Gastrointestinal: Denies abdominal pain, diarrhea, nausea or vomiting Genitourinary Genitourinary ED: Reports as per HPI and difficulty urinating; Denies dysuria or hematuria Musculoskeletal Musculoskeletal: Denies back pain or neck pain Integumentary Denies abscess or rash Neurologic Neurologic: Denies headache(s), paresthesias or weakness Psychiatric Psychiatric: Denies anxiety or suicidal thoughts EXAM Physical Exam Const Vital Signs: 08/21/25 03:16 Temperature 98.5 F Temperature Source Oral Pulse Rate 88 Respiratory Rate 16 Blood Pressure 164/91 H Blood Pressure Mean 115 Pulse Ox 98 Positive well nourished, well developed and obese General Appearance ED: well developed and NAD Nutritional Appearance: obese HEENT Reports moist mucous membranes normocephalic and atraumatic Eyes PERRL and EOMs intact bilaterally Neck full ROM and supple Resp normal respiratory effort and clear to auscultation bilaterally Cardio regular rate, regular rhythm and no murmurs GI non-tender and non-distended Auscultation: normoactive bowel sounds Palpation: soft no CVA tenderness Narrative: Circumcised penis. Normal-appearing. No scrotal tenderness. Urethral meatus is open, without any bloody discharge or signs of inflammation/infection. Nontender. No hernias. Back/Spine no CVA tenderness General Back: other FROM Extremity normal to inspection General Extremety ED: Negative for edema, pulses abnormal or tenderness General Extremity: Negative for edema or pulses abnormal Neuro oriented x3, CN's II-XII intact bilaterally and no sensory deficits noted Sensorium / Orientation: awake and alert Motor Exam: strength 5/5 throughout Skin no rashes or lesions noted and no wounds MDM MDM MDM Narrative Medical decision making narrative: Nurses attempted to catheterize the patient, they were unable, but upon pushing varying sizes of Gaming catheters beyond the urethral meatus, they essentially opened and dilated it which the patient suggested allowed him to urinate, suggesting he had urinary retention from a urethral stricture rather than an issue at the prostate necessarily, although he could have that as well. I sent the urine for urinalysis. It does not appear to be infected. Given this he is discharged home with instructions to follow-up with urology as scheduled he is comfortable with that plan. Lab Data Attestation: I reviewed the patient's lab results. Labs: Laboratory Results - last 24 hr 08/21/25 03:58 Urine Color Yellow Urine Clarity Clear Urine pH 6.0 Ur Specific [place] 1.025 Urine Protein 15 H Urine Glucose (UA) Normal Urine Ketones Negative Urine Occult Blood 25 H Urine Nitrite Negative Urine Bilirubin Negative Urine Urobilinogen Normal Ur Leukocyte Esterase Negative Urine RBC 0 SEEN Urine WBC 0-5 SEEN Ur Squamous Epith Cells 0 SEEN Urine Bacteria 0 SEEN Urine Mucus 0 SEEN Discharge Plan Triage Chief Complaint: Complaint ED Provider: Gil Pabon Dx/Rx/DC Orders Clinical Impression: Acute urinary retention, Urethral stricture Instructions: ED Urethral Stricture Prescriptions: No Action tamsulosin [Flomax] 0.4 mg capsule 0.4 mg PO DAILY Qty: 30 0RF Primary Care Provider: Care Physician,No Primary Referrals: Ramo Girard MD [Med Staff - Active Staff, Urology] - Keep Liang appointment Print Language: [place] Disposition Disposition: Home, Self Care
[2025-08-21 04:01] LABS: Mucous, Urine 0 SEEN /hpf (<or=2+); Red Blood Cells-Urine 0 SEEN /hpf (0-5); Squamous Epithelial Cells - UA 0 SEEN /hpf (0-5)
[2025-08-21 04:03] LABS: Color, Urine Yellow (Yellow); Glucose, Dipstick Normal (Normal); Ketone-Dipstick Negative (Negative); Leukocyte Esterase-Dipstick Negative /ul (Negative); Nitrite-Dipstick Negative (Negative); Occult Blood-Urine 25 /ul (Negative); Protein-Dipstick 15 mg/dl (Negative); Specific Gravity, Urine 1.025 (1.002-1.030); Urine Bilirubin Dipstick Negative (Negative)
[2025-08-21 04:48] VITALS: BP 129/78; PULSE 84; RESP 16; TEMP 36.2; O2SAT 96
== END 2025-08-21 04:53 | disposition home or self-care (01) ==
PROVIDERS: Emergency Provider Emergency Medicine; Visit Provider Emergency Medicine
DX: N35.919 Unspecified urethral stricture, male, unspecified site (principal); Z68.41 Body mass index [BMI] 40.0-44.9, adult; E66.9 Obesity, unspecified
CPT/HCPCS: 81001; 99282